=== PATIENT | female | born 1945 | race Hispanic/Latino ===

== ENCOUNTER 2016-07-21 12:21 | Outpatient (CLI) | payer MEDICARE ==
--- NOTE | 2016-07-21 15:22 | Cat Scan Report ---
CT CHEST WITHOUT CONTRAST INDICATION: Persistent cough. COMPARISON: 09/21/2009. FINDINGS: Noncontrast chest CT demonstrates normal heart size with silhouette exaggerated due to prominent pericardial fat pad. Anemia not excluded. Coronary calcifications. No effusions. Patent central airway. No aortic aneurysm, though assessment of the great vessels and for detecting subtle lymphadenopathy limited due to lack of IV contrast. No size significant axillary lymphadenopathy. Thyroid gland size normal. Some breathing artifact. Diffuse emphysematous changes again noted with interval resolution of bibasilar consolidation and small pleural effusions. Mild bibasilar scarring seen. Large hiatal hernia now measures approximately 5 cm AP x 10 cm transverse. Few hepatic hypodense cysts/hamartomas again seen, the largest 1.5 cm in the left hepatic lobe measuring 18 HU as on axial image 87, series 2. Slight left hepatic pneumobilia. Stable adrenal contours, including 1.2 cm hypodense right adrenal adenoma. Approximately 3.8 cm duodenum diverticulum about the junction of its second and third portions. Osteopenia and mild thoracic spine degenerative spurring. CONCLUSION: No acute chest CT abnormality on this unenhanced exam with numerous incidental findings, including COPD, large hiatal hernia, multiple hepatic hypodensities/cysts, duodenal diverticulum and adrenal adenomas again noted, also described in August 2009. Please correlate. Thank you for the opportunity to participate in this patient's care.
== END 2016-07-21 12:22 | disposition home or self-care (01) ==
LOC: CT 12:21
PROVIDERS: ATTEND Specialist
DX: R05 Cough (principal); M85.88 Other specified disorders of bone density and structure, other site; M47.894 Other spondylosis, thoracic region; K57.90 Diverticulosis of intestine, part unspecified, without perforation or abscess without bleeding; D35.01 Benign neoplasm of right adrenal gland; K76.89 Other specified diseases of liver; J90 Pleural effusion, not elsewhere classified; K44.9 Diaphragmatic hernia without obstruction or gangrene
CPT/HCPCS: 71250

== ENCOUNTER 2017-08-08 08:54 | Outpatient (CLI) | payer MEDICARE ==
--- NOTE | 2017-08-08 16:21 | Mammography Report ---
BONE DEXA:08/08/17 08:54:00 CLINICAL: Postmenopausal and long-term use of steroids. No comparison. TECHNIQUE: Two site bone DEXA performed on an Hologic scanner. FINDINGS: The average BMD of the lumbar spine L1-L4 is 0.696g/cm squared with a T-score of -3.2 and a Z-score of -0.9. The average BMD of the left hip is 0.673g/cm squared with a T-score of -2.2 and a Z-score of -0.5. The left femoral neck BMD is 0.551g/cm squared with a T score of -2.7 and a Z score of -0.7. IMPRESSION: WHO classification: Osteoporosis with high fracture risk based on both lumbar spine and left femoral neck measurements. RECOMMENDATION: Clinical correlation and routine screening. DEFINITIONS: BMD = Bone Mineral Density T-score = BMD related to mean peak bone mass of young adult (mean expressed in Standard Deviation) Z-score = Age matched BMD expressed in SD World Health Organization (WHO) Diagnostic Criteria Normal T-score > -1 SD Osteopenia T-score between -1 and -2.4 SD Osteoporosis T-score -2.5 SD or below NOTE: BMD is not the only risk factor for fracture. One should also consider factors such as the patient's age, risk of falling, previous osteoporotic fracture, family history of osteoporotic fractures, current smoker, and low body weight. Z-scores are not calculated if >80 years of age.
== END 2017-08-08 08:55 | disposition home or self-care (01) ==
LOC: MAMMO 08:54
PROVIDERS: ATTEND Internal Medicine
DX: Z13.820 Encounter for screening for osteoporosis (principal); Z79.51 Long term (current) use of inhaled steroids; Z78.0 Asymptomatic menopausal state
CPT/HCPCS: 77080

== ENCOUNTER 2017-10-09 11:02 | Emergency (ER) | payer MEDICARE ==
[2017-10-09 11:58] LABS: Hemoglobin 11.5 gm/dl (10.1-14.3); Mean Corpuscular HGB Conc 32 % (30-34); Mean Corpuscular Hemoglobin 33 pg (28-32); Mean Corpuscular Volume 105 fl (79-97); Platelet Count 296 K/mm3 (140-440); Red Blood Count 3.43 M/mm3 (3.65-5.03); Red Cell Distribution Width 19.1 % (13.2-15.2)
[2017-10-09 12:13] LABS: Alanine Aminotransferase 11 units/L (7-56); Albumin 3.8 g/dL (3.9-5); BUN/Creatinine Ratio 15; Blood Urea Nitrogen 6 mg/dL (7-17); Calcium 6.3 mg/dL (8.4-10.2); Hemolysis Index 4
--- NOTE | 2017-10-09 13:22 | Emergency Department Report ---
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 Patient presented to the ER complaining of generalized weakness and shortness of breath. Patient is worried that her hemoglobin is dropping again. Patient stated that her shortness of breath is usual for her since she has a COPD but she is worried about congestive heart failure. Patient denied any chest pain, lower extremity swelling, fever or cough. - Related Data Home Medications Medication Instructions Recorded Confirmed Last Taken ALBUTEROL Inhaler [ProAir HFA 2 puff IH DAILY 01/12/13 07/16/14 06/12/14 Inhaler] ALBUTEROL NEB's [Proventil 0.083% 2.5 mg IH QID 01/12/13 07/16/14 06/12/14 NEBS] Fluticasone/Salmeterol [Advair 1 puff IH BID 01/12/13 07/16/14 06/12/14 Diskus 250-50 mcg] Tiotropium [Spiriva] 1 cap IH QDAY 01/12/13 07/16/14 06/12/14 Iron 65 mg PO QDAY 06/05/14 07/16/14 06/11/14 Lansoprazole [Prevacid] 15 mg PO QDAY 06/05/14 07/16/14 06/11/14 Previous Rx's Medication Instructions Recorded Last Taken Type Calcium Carbonate/Vitamin D3 1 each PO DAILY #15 tablet 10/09/17 Unknown Rx [Calcium 600-Vit D3 800 Tablet] Allergies Allergy/AdvReac Type Severity Reaction Status Date / Time levofloxacin [From Levaquin] Allergy Anaphylaxis Verified 01/12/13 14:17 Penicillins Allergy Anaphylaxis Verified 01/12/13 14:17 Sulfa (Sulfonamide Allergy Anaphylaxis Verified 01/12/13 14:17 Antibiotics) ED Review of Systems ROS: Stated complaint: SOB Other details as noted in HPI Comment: All other systems reviewed and negative Constitutional: denies: chills, fever Respiratory: shortness of breath, SOB with exertion, SOB at rest. denies: cough Cardiovascular: denies: chest pain, palpitations, dyspnea on exertion Gastrointestinal: denies: abdominal pain, nausea, vomiting, diarrhea, constipation, hematemesis, melena, hematochezia Neurological: weakness. denies: headache, numbness, paresthesias, confusion ED Past Medical Hx - Past Medical History Hx Arthritis: Yes (HANDS,osteo arthritis) Hx COPD: Yes (home O2) Additional medical history: anemia - Surgical History Additional Surgical History: Hysterectomy. Tonsillectomy. - Social History Smoking Status: Unknown if ever smoked Substance Use Type: None - Medications Home Medications: Home Medications Medication Instructions Recorded Confirmed Last Taken Type ALBUTEROL Inhaler [ProAir HFA 2 puff IH DAILY 01/12/13 07/16/14 06/12/14 History Inhaler] ALBUTEROL NEB's [Proventil 0.083% 2.5 mg IH QID 01/12/13 07/16/14 06/12/14 History NEBS] Fluticasone/Salmeterol [Advair 1 puff IH BID 01/12/13 07/16/14 06/12/14 History Diskus 250-50 mcg] Tiotropium [Spiriva] 1 cap IH QDAY 01/12/13 07/16/14 06/12/14 History Iron 65 mg PO QDAY 06/05/14 07/16/14 06/11/14 History Lansoprazole [Prevacid] 15 mg PO QDAY 06/05/14 07/16/14 06/11/14 History Calcium Carbonate/Vitamin D3 1 each PO DAILY #15 tablet 10/09/17 Unknown Rx [Calcium 600-Vit D3 800 Tablet] ED Physical Exam - General Limitations: No Limitations General appearance: alert, in no apparent distress - Head Head exam: Present: atraumatic, normocephalic, normal inspection - Eye Eye exam: Present: normal appearance, PERRL - ENT ENT exam: Present: normal exam, normal orophraynx, mucous membranes moist - Neck Neck exam: Present: normal inspection, full ROM. Absent: tenderness, meningismus, lymphadenopathy, thyromegaly - Respiratory Respiratory exam: Present: normal lung sounds bilaterally. Absent: respiratory distress, wheezes, rales, rhonchi, chest wall tenderness, accessory muscle use, decreased breath sounds, prolonged expiratory - Cardiovascular Cardiovascular Exam: Present: regular rate, normal rhythm, normal heart sounds - GI/Abdominal GI/Abdominal exam: Present: soft, normal bowel sounds. Absent: distended, tenderness, guarding, rebound, rigid, organomegaly, mass, bruit, pulsatile mass , hernia - Extremities Exam Extremities exam: Present: normal inspection, full ROM, normal capillary refill. Absent: pedal edema, calf tenderness - Back Exam Back exam: Present: normal inspection, full ROM. Absent: CVA tenderness (R), CVA tenderness (L), muscle spasm, paraspinal tenderness, vertebral tenderness, rash noted - Neurological Exam Neurological exam: Present: alert, oriented X3, CN II-XII intact, normal gait, reflexes normal - Skin Skin exam: Present: warm, intact, normal color ED Course Vital Signs 10/09/17 10/09/17 10/09/17 11:26 12:42 12:48 Temperature 98 F Pulse Rate 103 H 80 Respiratory 18 22 22 Rate Blood Pressure 110/78 Blood Pressure 120/55 [Right] O2 Sat by Pulse 98 98 100 Oximetry 10/09/17 13:56 Temperature Pulse Rate 75 Respiratory Rate Blood Pressure Blood Pressure [Right] O2 Sat by Pulse Oximetry ED Medical Decision Making - Lab Data Result diagrams: 10/09/17 11:48 10/09/17 11:48 - Radiology Data Radiology results: image reviewed interpreted by me: Chest x-ray is unremarkable. Critical care attestation.: If time is entered above; I have spent that time in minutes in the direct care of this critically ill patient, excluding procedure time. ED Disposition Clinical Impression: Shortness of breath, Generalized weakness, Hypocalcemia Disposition: TO HOME OR SELFCARE Is pt being admited?: No Condition: Stable Instructions: Hypocalcemia (ED), Dyspnea (ED) Prescriptions: Calcium Carbonate/Vitamin D3 [Calcium 600-Vit D3 800 Tablet] 1 each PO DAILY # 15 tablet Referrals: PRIMARY CARE, [Primary Care Provider] - 3-5 Days
[2017-10-09 14:03] LABS: INR 0.85 (0.87-1.13)
[2017-10-09 14:04] LABS: Partial Thromboplastin Time 25.8 Sec. (24.2-36.6)
[2017-10-09 14:35] LABS: Bacteria,Urine 1+ /HPF (Negative); Bilirubin,Urine NEG (Negative); Blood,Urine NEG (Negative); Color,Urine Yellow (Yellow); Mucus,Urine FEW /HPF; Protein,Urine <15 mg/dL mg/dL (Negative)
[2017-10-09] MEDS ORDERED: CALCIUM CHLORIDE 1,000 MG in NACL 0.9% 100 ML IV ONE (15:25)
[2017-10-09 16:43] VITALS: BP 118/55
--- NOTE | 2017-10-09 18:15 | XRay Report ---
FINAL REPORT EXAM: XR CHEST 1V AP HISTORY: sob TECHNIQUE: Frontal chest x-ray Comparison: None FINDINGS: Heart size is mildly enlarged. There is hypoventilatory change of both lung bases. Underlying pulmonary emphysema may be present. There is mild left basal scar. Bases are incompletely assessed. There is degenerative change of the bilateral shoulder girdles. IMPRESSION: Hypoventilated single-view frontal chest. Atelectatic changes of the bases. Cardiomegaly without failure. Probable emphysema. Recommend larger inspiratory volume two view chest.
== END 2017-10-09 16:25 | disposition home or self-care (01) ==
LOC: ED 11:02
DX: E83.51 Hypocalcemia (principal); M62.81 Muscle weakness (generalized); R06.02 Shortness of breath; M19.90 Unspecified osteoarthritis, unspecified site; D64.9 Anemia, unspecified; Z90.710 Acquired absence of both cervix and uterus; Z90.89 Acquired absence of other organs; Z88.0 Allergy status to penicillin; Z88.2 Allergy status to sulfonamides; Z88.1 Allergy status to other antibiotic agents; Z79.899 Other long term (current) drug therapy
CPT/HCPCS: 36415; 71045; 80053; 81001; 83880; 84484; 85027; 85610; 85730; 86850; 86900; 86901; 93005; 93010; 96365

== ENCOUNTER 2018-11-24 12:27 | Outpatient (CLI) | payer MEDICARE ==
[2018-11-24 13:27] LABS: BUN/Creatinine Ratio 16; Blood Urea Nitrogen 8 mg/dL (7-17); Calcium 8.8 mg/dL (8.4-10.2); Hemolysis Index 18
--- NOTE | 2018-11-24 14:33 | Cat Scan Report ---
. CTA CHEST WITH CONTRAST INDICATION : R04.2 HEMOPTYSIS. Shortness of breath. TECHNIQUE: Axial imaging performed through the chest, with contrast bolus timing set to maximize opa cification of the pulmonary arteries. Sagittal and coronal reformatted images. 3-plane MIP reformatte d images were obtained. All CT scans at this location are performed using CT dose reduction for ALAR A by means of automated exposure control. 100 mL of intravenous contrast administered. COMPARISON: None FINDINGS: Bolus: Contrast bolus timing is adequate. PTE: No filling defect is present to suggest PTE. Mediastinum: Heart and great vessels appear normal. No pathologic mediastinal adenopathy. A large h iatal hernia is identified. Lungs: Moderate emphysematous changes are identified bilaterally. No evidence for infiltrate, mass, pleural effusion or pneumothorax. Bones: Degenerative changes in the spine with nothing acute. Upper abdomen: Limited imaging of the upper abdomen shows nothing acute. IMPRESSION: No evidence for pulmonary embolus. Emphysematous changes. Large hiatal hernia. Signer Name: Rigo Emery Jr, MD Signed: 11/24/2018 2:28 PM Workstation Name: [id number]
== END 2018-11-24 12:28 | disposition home or self-care (01) ==
LOC: CT 12:27
PROVIDERS: ATTEND Internal Medicine
DX: R04.2 Hemoptysis (principal)
CPT/HCPCS: 36415; 71275; 80048

== ENCOUNTER 2019-02-06 12:59 | Inpatient (IN) | payer MEDICARE ==
[2019-02-06] MEDS ORDERED: ALBUTEROL 2.5 MG/3 ML NEBU IH ONE (13:21)
[2019-02-06] MEDS ORDERED: IPRATROPIUM 0.02% NEBU 2.5 ML IH ONE (13:21)
[2019-02-06] MEDS ORDERED: methylPREDNISolone Sod Succinate 125 MG/2 ML INJ IV ONE (13:22)
--- NOTE | 2019-02-06 13:25 | Emergency Department Report ---
<VIKTORMISSY A - Last Filed: 02/06/19 17:22> ED Shortness of Breath HPI - General Chief Complaint: Dyspnea/Respdistress Stated Complaint: SOB Time Seen by Provider: 02/06/19 13:19 Source: patient Mode of arrival: Wheelchair Limitations: Physical Limitation - History of Present Illness Initial Comments: Pt is a 73-year-old female who comes to the ER after seeing her PCP Dr. Cabrales ([phone]) yesterday. During the office visit he did some blood work, the results came back today, and he called the patient and told her to come to the ER given her with the patient reports to be low oxygen level. [employer] Advisor is Dr. Reddy Pt voices progressive shortness of breath. Shortness of breath requiring less activity to precipitate it. She also reports that her legs up and swollen. Her primary care had her set up for an echocardiogram outpatient tomorrow. She denies any chest pain. Of note the patient was in the emergency room in November and had a CTA that time that showed emphysematous changes and no PE. PMH COPD On home NC 2-3 L former smoker PSH denies NO known CAD/CVA NOK daugther Home Rx ventolin albuterol budesimide lanpaprozole prednisone sprivia vitc fe D3 Complaint: shortness of breath -: Gradual Severity: moderate Improves With: oxygen, rest Worsens With: exertion Known History Of: COPD, congestive heart failure Treatments Prior to Arrival: oxygen, bronchodilator - Related Data Home Oxygen Therapy: Yes Home Oxygen Amount: 2 Liters Home Medications Medication Instructions Recorded Confirmed Last Taken ALBUTEROL NEB's [Proventil 0.083% 2.5 mg IH Q6H PRN 01/12/13 10/19/17 06/12/14 NEBS] Tiotropium [Spiriva] 1 cap IH QDAY 01/12/13 10/19/17 06/12/14 Iron [Iron 18 MG TAB] 65 mg PO QDAY 06/05/14 10/19/17 06/11/14 Lansoprazole [Prevacid] 30 mg PO QDAY 06/05/14 10/19/17 06/11/14 Albuterol Sulfate [Ventolin HFA] 2 puff IH Q6H PRN 10/19/17 10/19/17 Unknown Budesoni/Formotero 160-4.5(Nf) 2 puff IH BID 10/19/17 10/19/17 Unknown [Symbicort 160-4.5 (Nf)] Previous Rx's Medication Instructions Recorded Last Taken Type Phosphorus #1 [K-Phos Neutral] 250 mg PO QID #120 tablet 10/20/17 Unknown Rx Calcium Carbonate [Tums 500MG CHEW] 1,000 mg PO BID 60 Days tablet 10/29/17 Unknown Rx Cholecalciferol (Vitamin D3) 50,000 unit PO QWEEK #6 capsule 10/29/17 Unknown Rx [Vitamin D3 50,000UNIT CAP] Allergies Allergy/AdvReac Type Severity Reaction Status Date / Time cefaclor [From Ceclor] Allergy Rash Verified 10/26/17 18:05 levofloxacin [From Levaquin] Allergy Anaphylaxis Verified 10/26/17 18:05 Penicillins Allergy Anaphylaxis Verified 10/26/17 18:05 Sulfa (Sulfonamide Allergy Anaphylaxis Verified 10/26/17 18:05 Antibiotics) ED Review of Systems Comment: All other systems reviewed and negative ED Past Medical Hx - Past Medical History Previous Medical History?: Yes Hx Hypertension: No Hx CVA: No Hx Heart Attack/AMI: No Hx Congestive Heart Failure: Yes Hx Diabetes: No Hx Deep Vein Thrombosis: No Hx Pulmonary Embolism: No Hx GERD: No Hx Liver Disease: No Hx Renal Disease: No Hx of Cancer: No Hx Sickle Cell Disease: No Hx Arthritis: Yes (HANDS,osteo arthritis) Hx Headaches / Migraines: No Hx Seizures: No Hx Kidney Stones: No Hx Psychiatric Treatment: No Hx Asthma: No Hx COPD: Yes (home O2 2.5L) Hx Tuberculosis: No Hx Dementia: No Hx HIV: No Additional medical history: anemia-transfusions, hypophosphatemia, hypocalcemia - Surgical History Past Surgical History?: Yes Additional Surgical History: Hysterectomy. Tonsillectomy. - Family History Family history: no significant - Social History Smoking Status: Former Smoker Substance Use Type: None - Medications Home Medications: Home Medications Medication Instructions Recorded Confirmed Last Taken Type ALBUTEROL NEB's [Proventil 0.083% 2.5 mg IH Q6H PRN 01/12/13 10/19/17 06/12/14 History NEBS] Tiotropium [Spiriva] 1 cap IH QDAY 01/12/13 10/19/17 06/12/14 History Iron [Iron 18 MG TAB] 65 mg PO QDAY 06/05/14 10/19/17 06/11/14 History Lansoprazole [Prevacid] 30 mg PO QDAY 06/05/14 10/19/17 06/11/14 History Albuterol Sulfate [Ventolin HFA] 2 puff IH Q6H PRN 10/19/17 10/19/17 Unknown History Budesoni/Formotero 160-4.5(Nf) 2 puff IH BID 10/19/17 10/19/17 Unknown History [Symbicort 160-4.5 (Nf)] Phosphorus #1 [K-Phos Neutral] 250 mg PO QID #120 tablet 10/20/17 Unknown Rx Calcium Carbonate [Tums 500MG CHEW] 1,000 mg PO BID 60 Days tablet 10/29/17 Unknown Rx Cholecalciferol (Vitamin D3) 50,000 unit PO QWEEK #6 capsule 10/29/17 Unknown Rx [Vitamin D3 50,000UNIT CAP] ED Physical Exam - General Limitations: Physical Limitation General appearance: alert, in no apparent distress - Head Head exam: Present: atraumatic, normocephalic - Eye Eye exam: Present: normal appearance - ENT ENT exam: Present: mucous membranes moist - Neck Neck exam: Present: normal inspection - Respiratory Respiratory exam: Present: normal lung sounds bilaterally, wheezes, rales, prolonged expiratory. Absent: rhonchi, stridor, chest wall tenderness, accessory muscle use, decreased breath sounds - Cardiovascular Cardiovascular Exam: Present: regular rate, normal rhythm, bradycardia. Absent: systolic murmur, diastolic murmur, rubs, gallop - GI/Abdominal GI/Abdominal exam: Present: soft, normal bowel sounds - Rectal Rectal exam: Present: deferred - Extremities Exam Extremities exam: Present: normal inspection - Back Exam Back exam: Present: normal inspection - Neurological Exam Neurological exam: Present: alert, oriented X3 - Psychiatric Psychiatric exam: Present: normal affect, normal mood - Skin Skin exam: Present: warm, dry, intact, normal color. Absent: rash ED Medical Decision Making - Lab Data Result diagrams: 02/06/19 13:33 02/06/19 13:33 - EKG Data EKG shows normal: sinus rhythm Rate: normal - EKG Data Interpretation: no acute changes - Radiology Data Radiology results: report reviewed, image reviewed - Medical Decision Making Labs 02/06/19 02/06/19 02/06/19 13:33 13:33 14:04 WBC 4.2 L RBC 3.52 L Hgb 12.4 Hct 38.2 MCV 109 H MCH 35 H MCHC 32 RDW 14.9 Plt Count 250 Lymph % (Auto) 7.5 L Mcpherson % (Auto) 6.1 Eos % (Auto) 1.0 Baso % (Auto) 0.3 Lymph # 0.3 L Mcpherson # 0.3 Eos # 0.0 Baso # 0.0 Seg Neutrophils % 85.1 H Seg Neutrophils # 3.6 POC ABG pH 7.464 H POC ABG pCO2 56.1 H POC ABG pO2 50 L POC ABG HCO3 40.3 POC ABG Total CO2 42 POC ABG O2 Sat 86 POC ABG Base Excess 17 FiO2 32 Sodium 143 Potassium 4.4 Chloride 96.9 L Carbon Dioxide 35 H Anion Gap 16 BUN 6 L Creatinine 0.5 L Estimated GFR > 60 BUN/Creatinine Ratio 12 Glucose 90 Calcium 9.1 Magnesium 2.00 Total Bilirubin 0.20 AST 16 ALT 6 L Alkaline Phosphatase 45 Total Creatine Kinase 87 CK-MB (CK-2) 3.7 CK-MB (CK-2) Rel Index 4.2 H Troponin T < 0.010 NT-Pro-B Natriuret Pep 267.6 Total Protein 6.8 Albumin 4.0 Albumin/Globulin Ratio 1.4 Vital Signs 02/06/19 02/06/19 02/06/19 13:19 13:25 13:54 Temperature 98.6 F Pulse Rate 103 H 103 H Pulse Rate [ 78 Bilateral] Respiratory 25 H Rate Respiratory 18 Rate [Bilateral ] Blood Pressure 130/105 O2 Sat by Pulse 94 Oximetry 02/06/19 13:58 Temperature Pulse Rate Pulse Rate [ Bilateral] Respiratory 25 H Rate Respiratory Rate [Bilateral ] Blood Pressure O2 Sat by Pulse 94 Oximetry ABG noted- PaO2 50 several years ago noted to be 75 call to PCP at 1415- Sat on arrival 86-90 now after albuterol/atrovent sat 99-100; then when pt exerts herself it falls to 90; this is on 3L 12 lead noted trop neg bnp neg xray noted labs noted- wbc normal no fever no cough 1415 Dr Fulton paged Staffed with Dr Tran [id number] Cabrales His concerns progressive hypoxia concerning for RV heart failure, pulmonary htn. He points out she is steroid dependent and sees Dr Martines -pulmonology He recommends echo in AM. 1720 DR FULTON AT BEDSIDE - Differential Diagnosis ro copd ae/dec hf/acs ED Disposition Disposition: DC-09 OP ADMIT IP TO THIS HOSP Is pt being admited?: Yes Does the pt Need Aspirin: No Condition: Stable Instructions: Chronic Obstructive Pulmonary Disease (ED) Referrals: PRIMARY CARE,MD [Primary Care Provider] - 3-5 Days Time of Disposition: 14:29 <BEKA FULTON S - Last Filed: 02/06/19 19:44> ED Review of Systems ROS: Stated complaint: SOB Other details as noted in HPI ED Course Vital Signs 02/06/19 02/06/19 02/06/19 13:19 13:25 13:54 Temperature 98.6 F Pulse Rate 103 H 103 H Pulse Rate [ 78 Bilateral] Respiratory 25 H Rate Respiratory 18 Rate [Bilateral ] Blood Pressure 130/105 Blood Pressure [Left] O2 Sat by Pulse 94 Oximetry 02/06/19 02/06/19 13:58 14:40 Temperature Pulse Rate 102 H Pulse Rate [ Bilateral] Respiratory 25 H 18 Rate Respiratory Rate [Bilateral ] Blood Pressure Blood Pressure 120/66 [Left] O2 Sat by Pulse 94 96 Oximetry ED Medical Decision Making - Lab Data Result diagrams: 02/06/19 13:33 02/06/19 13:33 Critical care attestation.: If time is entered above; I have spent that time in minutes in the direct care of this critically ill patient, excluding procedure time.
[2019-02-06 13:56] LABS: Basophils % (Auto) 0.3 % (0.0-1.8); Hematocrit 38.2 % (30.3-42.9); Hemoglobin 12.4 gm/dl (10.1-14.3); Lymphocytes # (Auto) 0.3 K/mm3 (1.2-5.4); Lymphocytes % (Auto) 7.5 % (13.4-35.0); Mean Corpuscular HGB Conc 32 % (30-34); Mean Corpuscular Volume 109 fl (79-97); Monocytes # (Auto) 0.3 K/mm3 (0.0-0.8); Monocytes % (Auto) 6.1 % (0.0-7.3); Platelet Count 250 K/mm3 (140-440); Red Blood Count 3.52 M/mm3 (3.65-5.03); Red Cell Distribution Width 14.9 % (13.2-15.2)
--- NOTE | 2019-02-06 14:11 | XRay Report ---
CHEST 1 VIEW INDICATION: Dyspnea. COMPARISON: 10/09/2017 FINDINGS: Support devices: None. Heart: Within normal limits. Lungs/Pleura: COPD changes in the lungs with mild bibasilar atelectasis. Additional findings: None. IMPRESSION: 1. COPD changes with mild bibasilar atelectasis. Signer Name: Otoniel Arteaga MD Signed: 02/06/2019 2:06 PM Workstation Name: [id number]
[2019-02-06 14:12] LABS: Creatine Kinase MB 3.7 ng/mL (0.0-4.0)
[2019-02-06 14:13] LABS: Alanine Aminotransferase 6 units/L (7-56); BUN/Creatinine Ratio 12; Blood Urea Nitrogen 6 mg/dL (7-17); Calcium 9.1 mg/dL (8.4-10.2); Hemolysis Index 14
[2019-02-06 14:35] LABS: INR 0.89 (0.87-1.13)
[2019-02-06 14:37] LABS: Partial Thromboplastin Time 28.2 Sec. (24.2-36.6)
[2019-02-06 15:06] LABS: Bacteria,Urine 4+ /HPF (Negative); Bilirubin,Urine NEG (Negative); Blood,Urine NEG (Negative); Color,Urine Yellow (Yellow); Mucus,Urine FEW /HPF; Protein,Urine <15 mg/dL mg/dL (Negative); WBC,Urine < 1.0 /HPF (0.0-6.0)
[2019-02-06] MEDS ORDERED: AZITHROMYCIN 500 MG in SODIUM CHLORIDE 0.9% 250ML 250 ML IV ONE (18:00)
[2019-02-06] MEDS ORDERED: ONDANSETRON 4 MG/2 ML INJ IV PRN (19:33)
[2019-02-06] MEDS ORDERED: HYDROmorphone 1 MG/1 ML INJ IV PRN (19:33)
[2019-02-06] MEDS ORDERED: ACETAMINOPHEN 325 MG TAB PO PRN (19:33)
[2019-02-06] MEDS ORDERED: oxyCODONE /ACETAMINOPHEN 5-325MG TAB PO PRN (19:33)
[2019-02-06] MEDS ORDERED: IPRATROPIUM/ALBUTEROL SULFATE 3 ML AMPUL.NEB IH PRN (19:40)
[2019-02-06] MEDS ORDERED: ALBUTEROL 8.5 GM INHALATION IH PRN (19:42)
[2019-02-06] MEDS ORDERED: TIOTROPIUM 18 MCG CAP INHALATION IH SCH (19:45)
[2019-02-06] MEDS ORDERED: ALBUTEROL 2.5 MG/3 ML NEBU IH PRN (20:04)
[2019-02-06] MEDS ORDERED: methylPREDNISolone Sod Succinate 125 MG/2 ML INJ ONE (20:45)
[2019-02-06] MEDS ORDERED: IPRATROPIUM/ALBUTEROL SULFATE 3 ML AMPUL.NEB IH ONE (20:46)
[2019-02-06] MEDS: IPRATROPIUM/ALBUTEROL SULFATE 3 ML AMPUL.NEB IH SCH (20:48)
[2019-02-06] MEDS: methylPREDNISolone Sod Succinate 125 MG/2 ML INJ IV SCH (20:48)
[2019-02-06] MEDS ORDERED: NON-FORMULARY EACH (Budesoni/Formotero 160-4.5(Nf) 2 PUFF) IH SCH (22:00)
[2019-02-06] MEDS: BUDESONIDE 0.5 MG/2 ML NEBU IH SCH (22:10)
[2019-02-06] MEDS: ARFORMOTEROL 15 MCG/2 ML NEBU IH SCH (22:10)
[2019-02-06] MEDS: FAMOTIDINE 20 MG/2 ML INJ IV SCH (23:11)
[2019-02-06] MEDS: HEPARIN 5,000 UNIT/1 ML VIAL SUB-Q SCH (23:12)
[2019-02-06] MEDS: CALCIUM CARBONATE 500 MG TAB CHEW PO SCH (23:13)
[2019-02-06] MEDS: K-PHOS NEUTRAL 250 MG TAB PO SCH (23:48)
[2019-02-07] MEDS ORDERED: LORazepam 2 MG/ML VIAL IV ONE (00:37)
[2019-02-07] MEDS ORDERED: AMIODARONE 150 MG in DEXTROSE 5% IN WATER 97 ML IV ONE (00:44)
[2019-02-07] MEDS ORDERED: SODIUM CHLORIDE 0.9% 500 ML 500 ML IV ONE (00:46)
--- NOTE | 2019-02-07 00:59 | Event Note ---
Date: 02/07/19 Arrived at bedside at 00:20 after call from RN requesting intervention for HR of 200. Respiratory therapist and rn in room. Pt sats 70s and HR, 120. Pt appeared anxious, EKG ordered and pt placed back on BIPAP. SVT rhythm and rate of 215 noted, cardiology paged, spoke with DR. Fabián Joyce, reccomendations appreciated. Normal saline bolus ordered for blood pressure of 89/65. Amniodarone bolus and drip ordered, echocardiogram, followup on ABG and patient will be transferred to ICU.
[2019-02-07] MEDS ORDERED: AMIODARONE 900 MG in DEXTROSE 5% IN WATER 482 ML IV SCH (01:00)
[2019-02-07 01:53] LABS: ABG Base Excess 5.6 mmol/L (-2.0-3.0); ABG HCO3 35.5 mmol/L (20.0-26.0); ABG Methemoglobin 0.5 % (0.0-1.5); ABG Oxygen Saturation 96.6 % (95.0-99.0); ABG PCO2 82.2 mm Hg; ABG PH 7.253 pH Units (7.350-7.450); ABG PO2 95.4 mm Hg (80.0-90.0)
[2019-02-07] MEDS: methylPREDNISolone Sod Succinate 125 MG/2 ML INJ IV SCH ×4 (05:13→21:04)
[2019-02-07 05:40] LABS: ABG Base Excess 8.5 mmol/L (-2.0-3.0); ABG HCO3 38.3 mmol/L (20.0-26.0); ABG Methemoglobin 0.5 % (0.0-1.5); ABG Oxygen Saturation 96.6 % (95.0-99.0); ABG PCO2 85.4 mm Hg; ABG PH 7.269 pH Units (7.350-7.450); ABG PO2 93.3 mm Hg (80.0-90.0)
[2019-02-07 05:45] LABS: Hematocrit 35.7 % (30.3-42.9); Hemoglobin 11.6 gm/dl (10.1-14.3); Mean Corpuscular HGB Conc 32 % (30-34); Mean Corpuscular Volume 109 fl (79-97); Platelet Count 241 K/mm3 (140-440); Red Blood Count 3.28 M/mm3 (3.65-5.03); Red Cell Distribution Width 14.6 % (13.2-15.2)
--- NOTE | 2019-02-07 05:57 | History and Physical Report ---
History of Present Illness Date of examination: 02/06/19 Date of admission: 02/06/19 19:33 Chief complaint: Severe SOB for one week and worsening. History of present illness: 73-year-old female with history of severe COPD comes to the ER for progressive shortness of breath. Shortness of breath requiring less activity to precipitate it. She also reports that her legs up and swollen. She denies any chest pain. SOB worsening over last one week.No orthopnea.Has Pedal edema.Cough productive of mucoid sputum. Patient was in the emergency room in November and had a CTA that time that showed emphysematous changes and no PE.NCo fever or chills.Patient on Home O2 2 to 3 liters Past Medical History Previous Medical History?: Yes Severe COPD Additional medical history: anemia-transfusions, hypophosphatemia, hypocalcemia - Surgical History Past Surgical History?: Yes Additional Surgical History: Hysterectomy. Tonsillectomy. - Family History Family history: no significant - Social History Smoking Status: Former Smoker Substance Use Type: None - Medications Home Medications: Home Medications Medication Instructions Recorded Confirmed Last Taken Type ALBUTEROL NEB's [Proventil 0.083% 2.5 mg IH Q6H PRN 01/12/13 10/19/17 06/12/14 History NEBS] Tiotropium [Spiriva] 1 cap IH QDAY 01/12/13 10/19/17 06/12/14 History Iron [Iron 18 MG TAB] 65 mg PO QDAY 06/05/14 10/19/17 06/11/14 History Lansoprazole [Prevacid] 30 mg PO QDAY 06/05/14 10/19/17 06/11/14 History Albuterol Sulfate [Ventolin HFA] 2 puff IH Q6H PRN 10/19/17 10/19/17 Unknown History Budesoni/Formotero 160-4.5(Nf) 2 puff IH BID 10/19/17 10/19/17 Unknown History [Symbicort 160-4.5 (Nf)] Phosphorus #1 [K-Phos Neutral] 250 mg PO QID #120 tablet 10/20/17 Unknown Rx Calcium Carbonate [Tums 500MG CHEW] 1,000 mg PO BID 60 Days tablet 10/29/17 Unknown Rx Cholecalciferol (Vitamin D3) 50,000 unit PO QWEEK #6 capsule 10/29/17 Unknown Rx [Vitamin D3 50,000UNIT CAP] Medications and Allergies Allergies Allergy/AdvReac Type Severity Reaction Status Date / Time cefaclor [From Ceclor] Allergy Rash Verified 10/26/17 18:05 levofloxacin [From Levaquin] Allergy Anaphylaxis Verified 10/26/17 18:05 Penicillins Allergy Anaphylaxis Verified 10/26/17 18:05 Sulfa (Sulfonamide Allergy Anaphylaxis Verified 10/26/17 18:05 Antibiotics) Home Medications Medication Instructions Recorded Confirmed Last Taken Type ALBUTEROL NEB's [Proventil 0.083% 2.5 mg IH Q6H PRN 01/12/13 10/19/17 06/12/14 History NEBS] Tiotropium [Spiriva] 1 cap IH QDAY 01/12/13 10/19/17 06/12/14 History Iron [Iron 18 MG TAB] 65 mg PO QDAY 06/05/14 10/19/17 06/11/14 History Lansoprazole [Prevacid] 30 mg PO QDAY 06/05/14 10/19/17 06/11/14 History Albuterol Sulfate [Ventolin HFA] 2 puff IH Q6H PRN 10/19/17 10/19/17 Unknown History Budesoni/Formotero 160-4.5(Nf) 2 puff IH BID 10/19/17 10/19/17 Unknown History [Symbicort 160-4.5 (Nf)] Phosphorus #1 [K-Phos Neutral] 250 mg PO QID #120 tablet 10/20/17 Unknown Rx Calcium Carbonate [Tums 500MG CHEW] 1,000 mg PO BID 60 Days tablet 10/29/17 Unknown Rx Cholecalciferol (Vitamin D3) 50,000 unit PO QWEEK #6 capsule 10/29/17 Unknown Rx [Vitamin D3 50,000UNIT CAP] Active Meds: Active Medications Acetaminophen (Tylenol) 650 mg PO Q4H PRN PRN Reason: Pain MILD(1-3)/Fever >100.5/RAMOS Albuterol (Proventil) 2.5 mg IH Q3HRT PRN PRN Reason: Shortness Of Breath Albuterol/Ipratropium (Duoneb *Not For Prn Use*) 1 ampul IH QIDRT [facility] Last Admin: 02/06/19 20:48 Dose: 1 ampul Documented by: Arformoterol Tartrate (Brovana Nebu) 15 mcg IH Q12HRT [facility] Last Admin: 02/06/19 22:10 Dose: 15 mcg Documented by: Budesonide (Pulmicort) 0.5 mg IH Q12HRT [facility] Last Admin: 02/06/19 22:10 Dose: 0.5 mg Documented by: Calcium Carbonate/Glycine (Tums) 1,000 mg PO BID [facility] Last Admin: 02/06/19 23:13 Dose: 1,000 mg Documented by: Famotidine (Pepcid) 20 mg IV BID [facility] Last Admin: 02/06/19 23:11 Dose: 20 mg Documented by: Ferrous Sulfate (Feosol) 325 mg PO DAILY [facility] Heparin Sodium (Porcine) (Heparin) 5,000 unit SUB-Q Q12HR [facility] Last Admin: 02/06/19 23:12 Dose: 5,000 unit Documented by: Hydromorphone HCl (Dilaudid) 0.5 mg IV Q3H PRN PRN Reason: Pain , Severe (7-10) Levofloxacin/Dextrose (Levaquin 750mg/150ml) 750 mg in 150 mls @ 100 mls/hr IV Q24H [facility]; Protocol Last Admin: 02/06/19 23:11 Dose: 100 mls/hr Documented by: Amiodarone HCl 900 mg/ (Dextrose) 500 mls @ 33.333 mls/hr IV DIRECT [facility]; Protocol Last Admin: 02/07/19 02:03 Dose: 1 mg/min, 33.333 mls/hr Documented by: Methylprednisolone Sodium Succinate (Solu-Medrol) 60 mg IV Q6H [facility] Last Admin: 02/07/19 05:13 Dose: 60 mg Documented by: Ondansetron HCl (Zofran) 4 mg IV Q8H PRN PRN Reason: Nausea And Vomiting Oxycodone/Acetaminophen (Percocet 5/325) 1 tab PO Q6H PRN PRN Reason: Pain, Moderate (4-6) Sodium Chloride (Sodium Chloride Flush Syringe 10 Ml) 10 ml IV BID [facility] Last Admin: 02/06/19 23:12 Dose: 10 ml Documented by: Sodium Chloride (Sodium Chloride Flush Syringe 10 Ml) 10 ml IV PRN PRN PRN Reason: LINE FLUSH Sodium Phosphate (K-Phos Neutral) 250 mg PO QID [facility] Last Admin: 02/06/19 23:48 Dose: 250 mg Documented by: Review of Systems All systems: negative Constitutional: no weight loss, no weight gain, no fever, no chills, no sweats, no night sweats Ears, nose, mouth and throat: no ear pain, no ear discharge, no tinnitis, no decreased hearing Breasts: deferred Cardiovascular: edema, shortness of breath, dyspnea on exertion, no chest pain, no orthopnea, no palpitations, no rapid/irregular heart beat, no syncope Respiratory: cough, cough with sputum, dyspnea on exertion, congestion, wheezing Gastrointestinal: no abdominal pain, no nausea, no vomiting, no diarrhea, no constipation Genitourinary Female: no menorrhagia, no urinary frequency, no urgency, no stress incontinence, no post void dribbling Menstruation: ammenorrhea Rectal: no pain Musculoskeletal: no neck stiffness, no neck pain, no shooting arm pain, no arm numbness/tingling, no low back pain, no shooting leg pain, no leg numbness/tingling, no redness of joints Integumentary: no rash, no pruritis, no redness, no sores, no wounds Neurological: no seizures, no syncope Psychiatric: no anxiety, no memory loss, no change in sleep habits, no sleep d isturbances, no insomnia, no hypersomnia, no change in appetite, no change in libido, no suicidal ideation, no disorientation, no hallucinations Allergic/Immunologic: wheezing, no urticaria, no allergic rhinitis Exam - Constitutional Vitals: Temp Pulse Resp BP Pulse Ox 97.5 F L 98 H 20 94/50 96 02/07/19 04:17 02/07/19 05:15 02/07/19 05:15 02/07/19 05:15 02/07/19 05:15 General appearance: Present: severe distress, well-nourished - EENT Eyes: Present: PERRL ENT: hearing intact, clear oral mucosa - Neck Neck: Present: supple, normal ROM - Respiratory Respiratory effort: normal Respiratory: bilateral: CTA, rales, rhonchi - Cardiovascular Heart rate: 98 Rhythm: regular Heart Sounds: Present: S1 & S2. Absent: rub, click - Extremities Extremities: no ischemia, pulses intact, pulses symmetrical, No edema Peripheral Pulses: within normal limits - Abdominal General gastrointestinal: Present: soft, non-tender, non-distended, normal bowel sounds Female genitourinary: Present: normal - Rectal Rectal Exam: deferred - Integumentary Integumentary: Present: clear, warm, dry - Musculoskeletal Musculoskeletal: gait normal, strength equal bilaterally - Psychiatric Psychiatric: appropriate mood/affect, intact judgment & insight - Neurologic Neurologic: CNII-XII intact, moves all extremities - Allied Health Allied health notes reviewed: nursing, case management Results - Labs CBC & Chem 7: 02/06/19 13:33 02/06/19 13:33 Labs: Laboratory Last Values WBC 4.2 K/mm3 (4.5-11.0) L 02/06/19 13:33 RBC 3.52 M/mm3 (3.65-5.03) L 02/06/19 13:33 Hgb 12.4 gm/dl (10.1-14.3) 02/06/19 13:33 Hct 38.2 % (30.3-42.9) 02/06/19 13:33 MCV 109 fl (79-97) H 02/06/19 13:33 MCH 35 pg (28-32) H 02/06/19 13:33 MCHC 32 % (30-34) 02/06/19 13:33 RDW 14.9 % (13.2-15.2) 02/06/19 13:33 Plt Count 250 K/mm3 (140-440) 02/06/19 13:33 Lymph % (Auto) 7.5 % (13.4-35.0) L 02/06/19 13:33 [place] % (Auto) 6.1 % (0.0-7.3) 02/06/19 13:33 Eos % (Auto) 1.0 % (0.0-4.3) 02/06/19 13:33 Baso % (Auto) 0.3 % (0.0-1.8) 02/06/19 13:33 Lymph # 0.3 K/mm3 (1.2-5.4) L 02/06/19 13:33 [place] # 0.3 K/mm3 (0.0-0.8) 02/06/19 13:33 Eos # 0.0 K/mm3 (0.0-0.4) 02/06/19 13:33 Baso # 0.0 K/mm3 (0.0-0.1) 02/06/19 13:33 Seg Neutrophils % 85.1 % (40.0-70.0) H 02/06/19 13:33 Seg Neutrophils # 3.6 K/mm3 (1.8-7.7) 02/06/19 13:33 PT 12.1 Sec. (12.2-14.9) L 02/06/19 13:33 INR 0.89 (0.87-1.13) 02/06/19 13:33 APTT 28.2 Sec. (24.2-36.6) 02/06/19 13:33 POC ABG pH 7.276 (7.35-7.45) L 02/07/19 00:56 ABG pH 7.269 pH Units (7.350-7.450) L 02/07/19 05:25 POC ABG pCO2 56.1 (35-45) H 02/06/19 14:04 ABG pCO2 85.4 mm Hg 02/07/19 05:25 POC ABG pO2 62 (80-105) L 02/07/19 00:56 ABG pO2 93.3 mm Hg (80.0-90.0) H 02/07/19 05:25 POC ABG HCO3 38.9 (22-26 mml/L) 02/07/19 00:56 ABG HCO3 38.3 mmol/L (20.0-26.0) H 02/07/19 05:25 POC ABG Total CO2 41 (23-27mmol/L) 02/07/19 00:56 POC ABG O2 Sat 86 02/07/19 00:56 ABG O2 Saturation 96.6 % (95.0-99.0) 02/07/19 05:25 ABG O2 Content 15.8 (0.0-44) 02/07/19 05:25 POC ABG Base Excess 12 ((-2) - (+3)mmol/L) 02/07/19 00:56 ABG Base Excess 8.5 mmol/L (-2.0-3.0) H 02/07/19 05:25 ABG Hemoglobin 11.8 gm/dl (12.0-16.0) L 02/07/19 05:25 ABG Carboxyhemoglobin 1.6 % (0.0-5.0) 02/07/19 05:25 ABG Methemoglobin 0.5 % (0.0-1.5) 02/07/19 05:25 Oxyhemoglobin 94.6 % (95.0-99.0) L 02/07/19 05:25 FiO2 40 % 02/07/19 05:25 Sodium 143 mmol/L (137-145) 02/06/19 13:33 Potassium 4.4 mmol/L (3.6-5.0) 02/06/19 13:33 Chloride 96.9 mmol/L (98-107) L 02/06/19 13:33 Carbon Dioxide 35 mmol/L (22-30) H 02/06/19 13:33 Anion Gap 16 mmol/L 02/06/19 13:33 BUN 6 mg/dL (7-17) L 02/06/19 13:33 Creatinine 0.5 mg/dL (0.7-1.2) L 02/06/19 13:33 Estimated GFR > 60 ml/min 02/06/19 13:33 BUN/Creatinine Ratio 12 % 02/06/19 13:33 Glucose 90 mg/dL (65-100) 02/06/19 13:33 Hemoglobin A1c 5.2 % (4-6) 02/06/19 13:33 Calcium 9.1 mg/dL (8.4-10.2) 02/06/19 13:33 Magnesium 2.00 mg/dL (1.7-2.3) 02/06/19 13:33 Total Bilirubin 0.20 mg/dL (0.1-1.2) 02/06/19 13:33 AST 16 units/L (5-40) 02/06/19 13:33 ALT 6 units/L (7-56) L 02/06/19 13:33 Alkaline Phosphatase 45 units/L (35-129) 02/06/19 13:33 Total Creatine Kinase 87 units/L (30-135) 02/06/19 13:33 CK-MB (CK-2) 3.7 ng/mL (0.0-4.0) 02/06/19 13:33 CK-MB (CK-2) Rel Index 4.2 (0-4) H 02/06/19 13:33 Troponin T < 0.010 ng/mL (0.00-0.029) 02/06/19 17:01 NT-Pro-B Natriuret Pep 267.6 pg/mL (0-900) 02/06/19 13:33 Total Protein 6.8 g/dL (6.3-8.2) 02/06/19 13:33 Albumin 4.0 g/dL (3.9-5) 02/06/19 13:33 Albumin/Globulin Ratio 1.4 % 02/06/19 13:33 Urine Color Yellow (Yellow) 02/06/19 Unknown Urine Turbidity Slightly-cloudy (Clear) 02/06/19 Unknown Urine pH 8.0 (5.0-7.0) H 02/06/19 Unknown Ur Specific [place] 1.009 (1.003-1.030) 02/06/19 Unknown Urine Protein <15 mg/dl mg/dL (Negative) 02/06/19 Unknown Urine Glucose (UA) Neg mg/dL (Negative) 02/06/19 Unknown Urine Ketones Tr mg/dL (Negative) 02/06/19 Unknown Urine Blood Neg (Negative) 02/06/19 Unknown Urine Nitrite Pos (Negative) 02/06/19 Unknown Urine Bilirubin Neg (Negative) 02/06/19 Unknown Urine Urobilinogen 2.0 mg/dL (<2.0) 02/06/19 Unknown Ur Leukocyte Esterase Neg (Negative) 02/06/19 Unknown Urine WBC (Auto) < 1.0 /HPF (0.0-6.0) 02/06/19 Unknown Urine RBC (Auto) 6.0 /HPF (0.0-6.0) 02/06/19 Unknown U Epithel Cells (Auto) 2.0 /HPF (0-13.0) 02/06/19 Unknown Urine Bacteria (Auto) 4+ /HPF (Negative) 02/06/19 Unknown Urine Mucus Few /HPF 02/06/19 Unknown - Imaging and Cardiology EKG: report reviewed (Sinus tach with pvc's) Chest x-ray: report reviewed (COPD changes) Assessment and Plan Assessment and plan: CCT 40 min Advance Directives: Yes (Full code) VTE prophylaxis?: Chemical Plan of care discussed with patient/family: Yes - Patient Problems (1) Acute respiratory failure with hypoxia and hypercapnia Current Visit: Yes Status: Acute Plan to address problem: patient has Hypoxia and Hypercarbia Needs Bipap Neb tx rtc and PRN IV Solumedrol and IV abbx Intubation if necessary (2) COPD with acute exacerbation Current Visit: Yes Status: Acute Plan to address problem: Patient has Hypoxia and Hypercarbia Needs Bipap Neb tx rtc and PRN IV Solumedrol and IV abbx Intubation if necessary Optometric Coordinator Dr Cornelius consulted (3) Pulmonary HTN Current Visit: Yes Status: Acute Plan to address problem: Patient has pedal edema Prob sec to pulm HTN due to COPD Will get ECHO and Cardiolgy consult (4) GERD (gastroesophageal reflux disease) Current Visit: Yes Status: Chronic Qualifiers: Esophagitis presence: with esophagitis Qualified Code(s): K21.0 - Gastro- esophageal reflux disease with esophagitis Plan to address problem: On PPI's (5) DVT prophylaxis Current Visit: Yes Status: Acute Plan to address problem: on Heparin and GI prophylaxis
[2019-02-07 06:16] LABS: Alanine Aminotransferase 9 units/L (7-56); Albumin 3.2 g/dL (3.9-5); BUN/Creatinine Ratio 14; Blood Urea Nitrogen 10 mg/dL (7-17); Calcium 8.6 mg/dL (8.4-10.2); Hemolysis Index 27
[2019-02-07 06:55] LABS: Basophils % (Manual) 0 % (0.0-1.8); Eosinophils % (Manual) 0 % (0.0-4.3); Platelet Estimate Consistent w Auto; Total Cells Counted 100
[2019-02-07] MEDS: BUDESONIDE 0.5 MG/2 ML NEBU IH SCH ×2 (08:37→20:48)
[2019-02-07] MEDS: IPRATROPIUM/ALBUTEROL SULFATE 3 ML AMPUL.NEB IH SCH (08:37)
[2019-02-07] MEDS: ARFORMOTEROL 15 MCG/2 ML NEBU IH SCH (08:38)
[2019-02-07] MEDS ORDERED: IRON 65 MG PO SCH (10:00)
[2019-02-07] MEDS: FAMOTIDINE 20 MG/2 ML INJ IV SCH ×2 (10:02→22:16)
[2019-02-07] MEDS: CALCIUM CARBONATE 500 MG TAB CHEW PO SCH ×2 (10:02→22:16)
[2019-02-07] MEDS: FERROUS SULFATE 325 MG TAB PO SCH (10:02)
[2019-02-07] MEDS: HEPARIN 5,000 UNIT/1 ML VIAL SUB-Q SCH ×2 (10:02→22:16)
[2019-02-07] MEDS: FUROSEMIDE 40 MG/4 ML INJ IV SCH (10:03)
[2019-02-07] MEDS: POTASSIUM CHLORIDE ER 20 MEQ TAB PO SCH (10:03)
--- NOTE | 2019-02-07 11:22 | Consultation ---
<KILLIAN JOHNSON - Last Filed: 02/07/19 13:41> History of Present Illness Consult date: 02/07/19 Consult reason: arrhythmia History of present illness: 73-year old woman with a history of severe COPD, chronic respiratory failure on home O2 who presented with worsening shortness of breath and lower extremity edema. Noted hypoxic on presentation with oxygen saturation in the 80s. On presentation, there were no reports of chest pain or palpitations. An ECG is sinus rhythm with PACs. Chest x-ray reports changes of chronic lung disease. While waiting for a medical bed, she developed a narrow complex tachycardia consistent with SVT. It is uncertain if the tachycardias are triggered by albuterol bronchodilator treatments. She has since reverted to sinus rhythm following intravenous amiodarone. Further cardiac evaluation with an echocardiogram showed a decreased left ventricular systolic function, ejection fraction 35-40%. Cardiology consultation has been requested. Patient is known to [facility] and follows with Dr Greer for palpitations. Two years ago, she wore an event monitor that reports transient atrial tachycardia managed conservatively. There is no prior history of coronary artery disease. An echocardiogram at that time showed a normal left ventricular systolic function, ejection fraction 55%. Medications and Allergies Allergies Allergy/AdvReac Type Severity Reaction Status Date / Time cefaclor [From Ceclor] Allergy Rash Verified 10/26/17 18:05 levofloxacin [From Levaquin] Allergy Anaphylaxis Verified 10/26/17 18:05 Penicillins Allergy Anaphylaxis Verified 10/26/17 18:05 Sulfa (Sulfonamide Allergy Anaphylaxis Verified 10/26/17 18:05 Antibiotics) Home Medications Medication Instructions Recorded Confirmed Last Taken Type ALBUTEROL NEB's [Proventil 0.083% 2.5 mg IH Q6H PRN 01/12/13 02/07/19 06/12/14 History NEBS] Tiotropium [Spiriva] 1 cap IH QDAY 01/12/13 02/07/19 02/06/19 History Iron [Iron 18 MG TAB] 65 mg PO QDAY 06/05/14 02/07/19 02/06/19 History Lansoprazole [Prevacid] 30 mg PO QDAY 06/05/14 02/07/19 02/06/19 History Albuterol Sulfate [Ventolin HFA] 2 puff IH Q6H PRN 10/19/17 02/07/19 Unknown History Budesoni/Formotero 160-4.5(Nf) 2 puff IH QID 10/19/17 02/07/19 02/05/19 History [Symbicort 160-4.5 (Nf)] Phosphorus #1 [K-Phos Neutral] 250 mg PO QID #120 tablet 10/20/17 02/07/19 Unknown Rx Calcium Carbonate [Tums 500MG CHEW] 1,000 mg PO BID 60 Days tablet 10/29/17 02/07/19 02/05/19 Rx Cholecalciferol (Vitamin D3) 50,000 unit PO QWEEK #6 capsule 10/29/17 02/07/19 02/05/19 Rx [Vitamin D3 50,000UNIT CAP] Furosemide [Lasix TAB] 20 mg PO QDAY #30 tablet 02/09/19 Unknown Rx Metoprolol Xl [Metoprolol 25 mg PO QDAY #30 tablet 02/09/19 Unknown Rx SUCCINATE ER TAB] lisinopriL [Zestril TAB] 2.5 mg PO QDAY #30 tablet 02/09/19 Unknown Rx predniSONE [Deltasone] 10 mg PO QDAY #30 tab 02/09/19 Unknown Rx predniSONE [Deltasone] 20 mg PO DAILY #4 tablet 02/09/19 Unknown Rx predniSONE [Deltasone] 40 mg PO DAILY 4 Days tablet 02/09/19 Unknown Rx predniSONE [Deltasone] 60 mg PO QDAY 4 Days tab 02/09/19 Unknown Rx Active Meds: Active Medications Acetaminophen (Tylenol) 650 mg PO Q4H PRN PRN Reason: Pain MILD(1-3)/Fever >100.5/RAMOS Albuterol (Proventil) 2.5 mg IH Q3HRT PRN PRN Reason: Shortness Of Breath Albuterol/Ipratropium (Duoneb *Not For Prn Use*) 1 ampul IH QIDRT [facility] Last Admin: 02/07/19 08:37 Dose: 1 ampul Documented by: Arformoterol Tartrate (Brovana Nebu) 15 mcg IH Q12HRT [facility] Last Admin: 02/07/19 08:38 Dose: Not Given Documented by: Budesonide (Pulmicort) 0.5 mg IH Q12HRT [facility] Last Admin: 12/18/19 08:37 Dose: 0.5 mg Documented by: Calcium Carbonate/Glycine (Tums) 1,000 mg PO BID [facility] Last Admin: 02/07/19 10:02 Dose: 1,000 mg Documented by: Famotidine (Pepcid) 20 mg IV BID [facility] Last Admin: 02/07/19 10:02 Dose: 20 mg Documented by: Ferrous Sulfate (Feosol) 325 mg PO DAILY [facility] Last Admin: 02/07/19 10:02 Dose: 325 mg Documented by: Furosemide (Lasix) 40 mg IV QDAY [facility] Last Admin: 02/07/19 10:03 Dose: 40 mg Documented by: Heparin Sodium (Porcine) (Heparin) 5,000 unit SUB-Q Q12HR [facility] Last Admin: 02/07/19 10:02 Dose: 5,000 unit Documented by: Hydromorphone HCl (Dilaudid) 0.5 mg IV Q3H PRN PRN Reason: Pain , Severe (7-10) Levofloxacin/Dextrose (Levaquin 750mg/150ml) 750 mg in 150 mls @ 100 mls/hr IV Q24H [facility]; Protocol Last Admin: 02/06/19 23:11 Dose: 100 mls/hr Documented by: Amiodarone HCl 900 mg/ (Dextrose) 500 mls @ 33.333 mls/hr IV DIRECT [facility]; Protocol Last Titration: 02/07/19 08:00 Dose: 0.5 mg/min, 16.667 mls/hr Documented by: Methylprednisolone Sodium Succinate (Solu-Medrol) 60 mg IV Q6H [facility] Last Admin: 02/07/19 09:59 Dose: 60 mg Documented by: Ondansetron HCl (Zofran) 4 mg IV Q8H PRN PRN Reason: Nausea And Vomiting Oxycodone/Acetaminophen (Percocet 5/325) 1 tab PO Q6H PRN PRN Reason: Pain, Moderate (4-6) Potassium Chloride (K-Dur) 20 meq PO QDAY [facility] Last Admin: 02/07/19 10:03 Dose: 20 meq Documented by: Sodium Chloride (Sodium Chloride Flush Syringe 10 Ml) 10 ml IV BID [facility] Last Admin: 02/06/19 23:12 Dose: 10 ml Documented by: Sodium Chloride (Sodium Chloride Flush Syringe 10 Ml) 10 ml IV PRN PRN PRN Reason: LINE FLUSH Physical Examination Vital Signs Pulse 103 H 02/06/19 13:19 General appearance: mild distress HEENT: Positive: PERRL Neck: Positive: trachea midline Cardiac: Positive: Tachycardia Lungs: Positive: Decreased Breath Sounds Neuro: Positive: Grossly Intact Results 02/07/19 04:55 02/07/19 04:55 Cardiac Enzymes 02/06/19 02/07/19 Range/Units 13:33 04:55 AST 16 12 (5-40) units/L CK-MB (CK-2) 3.7 (0.0-4.0) ng/mL Coagulation 02/06/19 Range/Units 13:33 PT 12.1 L (12.2-14.9) Sec. INR 0.89 (0.87-1.13) APTT 28.2 (24.2-36.6) Sec. CBC 02/06/19 02/07/19 Range/Units 13:33 04:55 WBC 4.2 L 12.4 H (4.5-11.0) K/mm3 RBC 3.52 L 3.28 L (3.65-5.03) M/mm3 Hgb 12.4 11.6 (10.1-14.3) gm/dl Hct 38.2 35.7 (30.3-42.9) % Plt Count 250 241 (140-440) K/mm3 Lymph # 0.3 L (1.2-5.4) K/mm3 [place] # 0.3 (0.0-0.8) K/mm3 Eos # 0.0 (0.0-0.4) K/mm3 Baso # 0.0 (0.0-0.1) K/mm3 Comprehensive Metabolic Panel 02/06/19 02/07/19 Range/Units 13:33 04:55 Sodium 143 142 (137-145) mmol/L Potassium 4.4 4.5 (3.6-5.0) mmol/L Chloride 96.9 L 99.1 (98-107) mmol/L Carbon Dioxide 35 H 32 H (22-30) mmol/L BUN 6 L 10 (7-17) mg/dL Creatinine 0.5 L 0.7 (0.7-1.2) mg/dL Glucose 90 185 H (65-100) mg/dL Calcium 9.1 8.6 (8.4-10.2) mg/dL AST 16 12 (5-40) units/L ALT 6 L 9 (7-56) units/L Alkaline Phosphatase 45 35 (35-129) units/L Total Protein 6.8 5.6 L (6.3-8.2) g/dL Albumin 4.0 3.2 L (3.9-5) g/dL Assessment and Plan Paroxysmal SVT treated with IV amiodarone; currently in sinus rhythm Dilated CMP, EF 35-40% by echo this admission Chronic respiratory failure on home oxygen Hx of COPD Agree with IV diuretics. We will discontinue intravenous amiodarone and instead use Toprol XL 25mg for suppression of tachyarrhythmias. Consider a switch to Xopenex for bronchodilator management to reduce likelihood of tachyarrhythmias. <KIKI BENOIT - Last Filed: 02/13/19 23:34> Physical Examination Vital Signs Pulse 103 H 02/06/19 13:19 Results 02/08/19 06:59 02/08/19 04:27 Assessment and Plan I have seen and evaluated the patient and agree with the assessment and plan.
--- NOTE | 2019-02-07 11:43 | Consultation ---
History of Present Illness Consult date: 02/07/19 Requesting physician: KIKI VEGA Reason for consult: dyspnea, COPD History of present illness: 73 y/o female with known COPD, chronic respiratory failure followed by Dr. Martines admitted with worsening dyspnea on exertion and acute on chronic respiratory failure. On the floor, had a heart rate of 200. Cards consulted and transferred to ICU. Was given Amio bolus and then started on amio drip. On bipap for respiratory distress. ABG showed hypercapnic respiratory failure. This has since resolved with bipap. patient off now and on home flow of oxygen. still tachypnic. About to eat breakfast. Patient had to be straight cathed as she was having difficulty with urination and had return of 800 cc's of urine. UA is positive as well. Remainder is negative. Past History Past Medical History: COPD, other (chronic respiratory failure) Medications and Allergies Allergies Allergy/AdvReac Type Severity Reaction Status Date / Time cefaclor [From Ceclor] Allergy Rash Verified 10/26/17 18:05 levofloxacin [From Levaquin] Allergy Anaphylaxis Verified 10/26/17 18:05 Penicillins Allergy Anaphylaxis Verified 10/26/17 18:05 Sulfa (Sulfonamide Allergy Anaphylaxis Verified 10/26/17 18:05 Antibiotics) Home Medications Medication Instructions Recorded Confirmed Last Taken Type ALBUTEROL NEB's [Proventil 0.083% 2.5 mg IH Q6H PRN 01/12/13 02/07/19 06/12/14 History NEBS] Tiotropium [Spiriva] 1 cap IH QDAY 01/12/13 02/07/19 02/06/19 History Iron [Iron 18 MG TAB] 65 mg PO QDAY 06/05/14 02/07/19 02/06/19 History Lansoprazole [Prevacid] 30 mg PO QDAY 06/05/14 02/07/19 02/06/19 History Albuterol Sulfate [Ventolin HFA] 2 puff IH Q6H PRN 10/19/17 02/07/19 Unknown History Budesoni/Formotero 160-4.5(Nf) 2 puff IH QID 10/19/17 02/07/19 02/05/19 History [Symbicort 160-4.5 (Nf)] Phosphorus #1 [K-Phos Neutral] 250 mg PO QID #120 tablet 10/20/17 02/07/19 Unknown Rx Calcium Carbonate [Tums 500MG CHEW] 1,000 mg PO BID 60 Days tablet 10/29/17 02/07/19 02/05/19 Rx Cholecalciferol (Vitamin D3) 50,000 unit PO QWEEK #6 capsule 10/29/17 02/07/19 02/05/19 Rx [Vitamin D3 50,000UNIT CAP] Active Meds: Active Medications Acetaminophen (Tylenol) 650 mg PO Q4H PRN PRN Reason: Pain MILD(1-3)/Fever >100.5/RAMOS Albuterol (Proventil) 2.5 mg IH Q3HRT PRN PRN Reason: Shortness Of Breath Albuterol/Ipratropium (Duoneb *Not For Prn Use*) 1 ampul IH QIDRT [facility] Last Admin: 02/07/19 08:37 Dose: 1 ampul Documented by: Arformoterol Tartrate (Brovana Nebu) 15 mcg IH Q12HRT [facility] Last Admin: 02/07/19 08:38 Dose: Not Given Documented by: Budesonide (Pulmicort) 0.5 mg IH Q12HRT [facility] Last Admin: 02/07/19 08:37 Dose: 0.5 mg Documented by: Calcium Carbonate/Glycine (Tums) 1,000 mg PO BID [facility] Last Admin: 02/07/19 10:02 Dose: 1,000 mg Documented by: Famotidine (Pepcid) 20 mg IV BID [facility] Last Admin: 02/07/19 10:02 Dose: 20 mg Documented by: Ferrous Sulfate (Feosol) 325 mg PO DAILY [facility] Last Admin: 02/07/19 10:02 Dose: 325 mg Documented by: Furosemide (Lasix) 40 mg IV QDAY [facility] Last Admin: 02/07/19 10:03 Dose: 40 mg Documented by: Heparin Sodium (Porcine) (Heparin) 5,000 unit SUB-Q Q12HR [facility] Last Admin: 02/07/19 10:02 Dose: 5,000 unit Documented by: Hydromorphone HCl (Dilaudid) 0.5 mg IV Q3H PRN PRN Reason: Pain , Severe (7-10) Levofloxacin/Dextrose (Levaquin 750mg/150ml) 750 mg in 150 mls @ 100 mls/hr IV Q24H [facility]; Protocol Last Admin: 02/06/19 23:11 Dose: 100 mls/hr Documented by: Amiodarone HCl 900 mg/ (Dextrose) 500 mls @ 33.333 mls/hr IV DIRECT [facility]; Protocol Last Titration: 02/07/19 08:00 Dose: 0.5 mg/min, 16.667 mls/hr Documented by: Methylprednisolone Sodium Succinate (Solu-Medrol) 60 mg IV Q6H [facility] Last Admin: 02/07/19 09:59 Dose: 60 mg Documented by: Ondansetron HCl (Zofran) 4 mg IV Q8H PRN PRN Reason: Nausea And Vomiting Oxycodone/Acetaminophen (Percocet 5/325) 1 tab PO Q6H PRN PRN Reason: Pain, Moderate (4-6) Potassium Chloride (K-Dur) 20 meq PO QDAY [facility] Last Admin: 02/07/19 10:03 Dose: 20 meq Documented by: Sodium Chloride (Sodium Chloride Flush Syringe 10 Ml) 10 ml IV BID [facility] Last Admin: 02/06/19 23:12 Dose: 10 ml Documented by: Sodium Chloride (Sodium Chloride Flush Syringe 10 Ml) 10 ml IV PRN PRN PRN Reason: LINE FLUSH Physical Examination Vital signs: Vital Signs Pulse 103 H 02/06/19 13:19 General appearance: other (mild distress) Eyes: non-icteric ENT: oropharynx moist Neck: supple Effort: mildly labored Ascultation: Bilateral: diminished breath sounds, rales Percussion: Bilateral: not dull Tactile fremitus: Bilateral: normal Cardiovascular: regular rate and rhythm Gastrointestinal: normoactive bowel sounds Extremities: edema (trace) normal mental status, non-focal exam Results - Laboratory Findings CBC and BMP: 02/07/19 04:55 02/07/19 04:55 ABG POC ABG pH 7.380 (7.35-7.45) 02/07/19 10:03 ABG pH 7.269 pH Units (7.350-7.450) L 02/07/19 05:25 POC ABG pCO2 65.1 (35-45) H 02/07/19 10:03 ABG pCO2 85.4 mm Hg 02/07/19 05:25 POC ABG pO2 66 (80-105) L 02/07/19 10:03 ABG pO2 93.3 mm Hg (80.0-90.0) H 02/07/19 05:25 POC ABG HCO3 38.5 (22-26 mml/L) 02/07/19 10:03 POC ABG Total CO2 40 (23-27mmol/L) 02/07/19 10:03 POC ABG O2 Sat 91 02/07/19 10:03 ABG O2 Saturation 96.6 % (95.0-99.0) 02/07/19 05:25 PT/INR, D-dimer PT 12.1 Sec. (12.2-14.9) L 02/06/19 13:33 INR 0.89 (0.87-1.13) 02/06/19 13:33 Abnormal lab findings: Abnormal Labs 02/06/19 02/06/19 02/06/19 13:33 13:33 13:33 WBC 4.2 L RBC 3.52 L MCV 109 H MCH 35 H Lymph % (Auto) 7.5 L Lymph # 0.3 L Seg Neutrophils % 85.1 H Seg Neuts % (Manual) Lymphocytes % (Manual) Seg Neutrophils # Man Lymphocytes # (Manual) PT 12.1 L POC ABG pH ABG pH POC ABG pCO2 POC ABG pO2 ABG pO2 ABG HCO3 ABG Base Excess ABG Hemoglobin Oxyhemoglobin Chloride 96.9 L Carbon Dioxide 35 H BUN 6 L Creatinine 0.5 L Glucose Phosphorus ALT 6 L CK-MB (CK-2) Rel Index 4.2 H Total Protein Albumin Urine pH 02/06/19 02/06/19 02/07/19 14:04 Unknown 00:56 WBC RBC MCV MCH Lymph % (Auto) Lymph # Seg Neutrophils % Seg Neuts % (Manual) Lymphocytes % (Manual) Seg Neutrophils # Man Lymphocytes # (Manual) PT POC ABG pH 7.464 H 7.276 L ABG pH POC ABG pCO2 56.1 H POC ABG pO2 50 L 62 L ABG pO2 ABG HCO3 ABG Base Excess ABG Hemoglobin Oxyhemoglobin Chloride Carbon Dioxide BUN Creatinine Glucose Phosphorus ALT CK-MB (CK-2) Rel Index Total Protein Albumin Urine pH 8.0 H 02/07/19 02/07/19 02/07/19 01:35 04:55 04:55 WBC 12.4 H RBC 3.28 L MCV 109 H MCH 35 H Lymph % (Auto) Lymph # Seg Neutrophils % Seg Neuts % (Manual) 94.0 H Lymphocytes % (Manual) 2.0 L Seg Neutrophils # Man 11.7 H Lymphocytes # (Manual) 0.2 L PT POC ABG pH ABG pH 7.253 L POC ABG pCO2 POC ABG pO2 ABG pO2 95.4 H ABG HCO3 35.5 H ABG Base Excess 5.6 H ABG Hemoglobin Oxyhemoglobin 94.5 L Chloride Carbon Dioxide 32 H BUN Creatinine Glucose 185 H Phosphorus ALT CK-MB (CK-2) Rel Index Total Protein 5.6 L Albumin 3.2 L Urine pH 02/07/19 02/07/19 02/07/19 04:55 05:25 10:03 WBC RBC MCV MCH Lymph % (Auto) Lymph # Seg Neutrophils % Seg Neuts % (Manual) Lymphocytes % (Manual) Seg Neutrophils # Man Lymphocytes # (Manual) PT POC ABG pH ABG pH 7.269 L POC ABG pCO2 65.1 H POC ABG pO2 66 L ABG pO2 93.3 H ABG HCO3 38.3 H ABG Base Excess 8.5 H ABG Hemoglobin 11.8 L Oxyhemoglobin 94.6 L Chloride Carbon Dioxide BUN Creatinine Glucose Phosphorus 4.60 H ALT CK-MB (CK-2) Rel Index Total Protein Albumin Urine pH - Diagnostic Findings Chest x-ray: image reviewed Assessment and Plan 73 y/o female with acute on chronic respiratory failure 1. Pulm-Continue Pulmicort and scheduled duonebs. I have stopped brovana therapy. Continue steroids at 60q6. Agree with diuresis as this will help COPD status as well (lungs like it dry). Get as close to euvolemia with daily net negative state as possible. Will continue bipap therapy at night. Given degree of systolic dysfunction, may need PPV at night for central apneas 2. CV-Tachycardia and now with depressed EF on echo. Patient unable to provide any cardiac history of if she has ever had an echo before. None at this hospital. Cards consulted so await their recs. 3. Pending cardiology recs, patient is now stable from rate control standpoint, and from critical care view, can be transferred to telemetry.
--- NOTE | 2019-02-07 15:33 | Progress Note ---
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 History Interval history: Shortness of breath Hospitalist Physical - Physical exam Narrative exam: Gen: Not in acute distress, lying in bed, obese HEENT: Normocephalic, atraumatic Neck: supple, no JVD Heart: S1 and S2 reg, no murmurs, rubs or gallop Lungs: Bilateral rhonchi, wheezing Abd: soft, non tender , non distended, normal BS Ext: No edema, no clubbing, no cyanosis Neuro: Awake,alert, oriented, moves all ext - Constitutional Vitals: Temp Pulse Resp BP Pulse Ox 98.2 F 94 H 34 H 121/59 90 02/07/19 12:00 02/07/19 12:00 02/07/19 12:00 02/07/19 12:00 02/07/19 12:00 Results - Labs CBC & Chem 7: 02/08/19 06:59 02/08/19 04:27 Labs: Laboratory Last Values WBC 12.4 K/mm3 (4.5-11.0) H 02/07/19 04:55 RBC 3.28 M/mm3 (3.65-5.03) L 02/07/19 04:55 Hgb 11.6 gm/dl (10.1-14.3) 02/07/19 04:55 Hct 35.7 % (30.3-42.9) 02/07/19 04:55 MCV 109 fl (79-97) H 02/07/19 04:55 MCH 35 pg (28-32) H 02/07/19 04:55 MCHC 32 % (30-34) 02/07/19 04:55 RDW 14.6 % (13.2-15.2) 02/07/19 04:55 Plt Count 241 K/mm3 (140-440) 02/07/19 04:55 Lymph % (Auto) 7.5 % (13.4-35.0) L 02/06/19 13:33 Pershing % (Auto) 6.1 % (0.0-7.3) 02/06/19 13:33 Eos % (Auto) 1.0 % (0.0-4.3) 02/06/19 13:33 Baso % (Auto) 0.3 % (0.0-1.8) 02/06/19 13:33 Lymph # 0.3 K/mm3 (1.2-5.4) L 02/06/19 13:33 Pershing # 0.3 K/mm3 (0.0-0.8) 02/06/19 13:33 Eos # 0.0 K/mm3 (0.0-0.4) 02/06/19 13:33 Baso # 0.0 K/mm3 (0.0-0.1) 02/06/19 13:33 Add Manual Diff Complete 02/07/19 04:55 Total Counted 100 02/07/19 04:55 Seg Neutrophils % E Business Consultant 02/07/19 04:55 Seg Neuts % (Manual) 94.0 % (40.0-70.0) H 02/07/19 04:55 Band Neutrophils % 0 % 02/07/19 04:55 Lymphocytes % (Manual) 2.0 % (13.4-35.0) L 02/07/19 04:55 Reactive Lymphs % (Man) 0 % 02/07/19 04:55 Monocytes % (Manual) 4.0 % (0.0-7.3) 02/07/19 04:55 Eosinophils % (Manual) 0 % (0.0-4.3) 02/07/19 04:55 Basophils % (Manual) 0 % (0.0-1.8) 02/07/19 04:55 Metamyelocytes % 0 % 02/07/19 04:55 Myelocytes % 0 % 02/07/19 04:55 Promyelocytes % 0 % 02/07/19 04:55 Blast Cells % 0 % 02/07/19 04:55 Nucleated RBC % Not Reportable 02/07/19 04:55 Seg Neutrophils # 3.6 K/mm3 (1.8-7.7) 02/06/19 13:33 Seg Neutrophils # Man 11.7 K/mm3 (1.8-7.7) H 02/07/19 04:55 Band Neutrophils # 0.0 K/mm3 02/07/19 04:55 Lymphocytes # (Manual) 0.2 K/mm3 (1.2-5.4) L 02/07/19 04:55 Abs React Lymphs (Man) 0.0 K/mm3 02/07/19 04:55 Monocytes # (Manual) 0.5 K/mm3 (0.0-0.8) 02/07/19 04:55 Eosinophils # (Manual) 0.0 K/mm3 (0.0-0.4) 02/07/19 04:55 Basophils # (Manual) 0.0 K/mm3 (0.0-0.1) 02/07/19 04:55 Metamyelocytes # 0.0 K/mm3 02/07/19 04:55 Myelocytes # 0.0 K/mm3 02/07/19 04:55 Promyelocytes # 0.0 K/mm3 02/07/19 04:55 Blast Cells # 0.0 K/mm3 02/07/19 04:55 WBC Morphology Not Reportable 02/07/19 04:55 Hypersegmented Neuts Not Reportable 02/07/19 04:55 Hyposegmented Neuts Not Reportable 02/07/19 04:55 Hypogranular Neuts Not Reportable 02/07/19 04:55 Smudge Cells Not Reportable 02/07/19 04:55 Toxic Granulation Not Reportable 02/07/19 04:55 Toxic Vacuolation Not Reportable 02/07/19 04:55 Dohle Bodies Not Reportable 02/07/19 04:55 Pelger-Huet Anomaly Not Reportable 02/07/19 04:55 Juan A Rods Not Reportable 02/07/19 04:55 Platelet Estimate Consistent w auto 02/07/19 04:55 Clumped Platelets Not Reportable 02/07/19 04:55 Plt Clumps, EDTA Not Reportable 02/07/19 04:55 Large Platelets Not Reportable 02/07/19 04:55 Giant Platelets Not Reportable 02/07/19 04:55 Platelet Satelliting Not Reportable 02/07/19 04:55 Plt Morphology Comment Not Reportable 02/07/19 04:55 RBC Morphology Not Reportable 02/07/19 04:55 Dimorphic RBCs Not Reportable 02/07/19 04:55 Polychromasia Not Reportable 02/07/19 04:55 Hypochromasia Not Reportable 02/07/19 04:55 Poikilocytosis Not Reportable 02/07/19 04:55 Anisocytosis Not Reportable 02/07/19 04:55 Microcytosis Not Reportable 02/07/19 04:55 Macrocytosis Not Reportable 02/07/19 04:55 Spherocytes Not Reportable 02/07/19 04:55 Pappenheimer Bodies Not Reportable 02/07/19 04:55 Sickle Cells Not Reportable 02/07/19 04:55 Target Cells Not Reportable 02/07/19 04:55 Tear Drop Cells Not Reportable 02/07/19 04:55 Ovalocytes Not Reportable 02/07/19 04:55 Helmet Cells Not Reportable 02/07/19 04:55 Bunch-Ravia Bodies Not Reportable 02/07/19 04:55 Duke Rings Not Reportable 02/07/19 04:55 Bere Cells Not Reportable 02/07/19 04:55 Bite Cells Not Reportable 02/07/19 04:55 Crenated Cell Not Reportable 02/07/19 04:55 Elliptocytes Not Reportable 02/07/19 04:55 Acanthocytes (Spur) Not Reportable 02/07/19 04:55 Rouleaux Not Reportable 02/07/19 04:55 Hemoglobin C Crystals Not Reportable 02/07/19 04:55 Schistocytes Not Reportable 02/07/19 04:55 Malaria parasites Not Reportable 02/07/19 04:55 Wei Bodies Not Reportable 02/07/19 04:55 Hem Pathologist Commnt No 02/07/19 04:55 PT 12.1 Sec. (12.2-14.9) L 02/06/19 13:33 INR 0.89 (0.87-1.13) 02/06/19 13:33 APTT 28.2 Sec. (24.2-36.6) 02/06/19 13:33 POC ABG pH 7.380 (7.35-7.45) 02/07/19 10:03 ABG pH 7.269 pH Units (7.350-7.450) L 02/07/19 05:25 POC ABG pCO2 65.1 (35-45) H 02/07/19 10:03 ABG pCO2 85.4 mm Hg 02/07/19 05:25 POC ABG pO2 66 (80-105) L 02/07/19 10:03 ABG pO2 93.3 mm Hg (80.0-90.0) H 02/07/19 05:25 POC ABG HCO3 38.5 (22-26 mml/L) 02/07/19 10:03 ABG HCO3 38.3 mmol/L (20.0-26.0) H 02/07/19 05:25 POC ABG Total CO2 40 (23-27mmol/L) 02/07/19 10:03 POC ABG O2 Sat 91 02/07/19 10:03 ABG O2 Saturation 96.6 % (95.0-99.0) 02/07/19 05:25 ABG O2 Content 15.8 (0.0-44) 02/07/19 05:25 POC ABG Base Excess 13 ((-2) - (+3)mmol/L) 02/07/19 10:03 ABG Base Excess 8.5 mmol/L (-2.0-3.0) H 02/07/19 05:25 ABG Hemoglobin 11.8 gm/dl (12.0-16.0) L 02/07/19 05:25 ABG Carboxyhemoglobin 1.6 % (0.0-5.0) 02/07/19 05:25 ABG Methemoglobin 0.5 % (0.0-1.5) 02/07/19 05:25 Oxyhemoglobin 94.6 % (95.0-99.0) L 02/07/19 05:25 FiO2 30 % 02/07/19 10:03 Sodium 142 mmol/L (137-145) 02/07/19 04:55 Potassium 4.5 mmol/L (3.6-5.0) 02/07/19 04:55 Chloride 99.1 mmol/L (98-107) 02/07/19 04:55 Carbon Dioxide 32 mmol/L (22-30) H 02/07/19 04:55 Anion Gap 15 mmol/L 02/07/19 04:55 BUN 10 mg/dL (7-17) 02/07/19 04:55 Creatinine 0.7 mg/dL (0.7-1.2) 02/07/19 04:55 Estimated GFR > 60 ml/min 02/07/19 04:55 BUN/Creatinine Ratio 14 % 02/07/19 04:55 Glucose 185 mg/dL (65-100) H 02/07/19 04:55 Hemoglobin A1c 5.2 % (4-6) 02/06/19 13:33 Calcium 8.6 mg/dL (8.4-10.2) 02/07/19 04:55 Phosphorus 4.60 mg/dL (2.5-4.5) H 02/07/19 04:55 Magnesium 2.00 mg/dL (1.7-2.3) 02/06/19 13:33 Total Bilirubin 0.30 mg/dL (0.1-1.2) 02/07/19 04:55 AST 12 units/L (5-40) 02/07/19 04:55 ALT 9 units/L (7-56) 02/07/19 04:55 Alkaline Phosphatase 35 units/L (35-129) 02/07/19 04:55 Total Creatine Kinase 87 units/L (30-135) 02/06/19 13:33 CK-MB (CK-2) 3.7 ng/mL (0.0-4.0) 02/06/19 13:33 CK-MB (CK-2) Rel Index 4.2 (0-4) H 02/06/19 13:33 Troponin T < 0.010 ng/mL (0.00-0.029) 02/06/19 17:01 NT-Pro-B Natriuret Pep 267.6 pg/mL (0-900) 02/06/19 13:33 Total Protein 5.6 g/dL (6.3-8.2) L 02/07/19 04:55 Albumin 3.2 g/dL (3.9-5) L 02/07/19 04:55 Albumin/Globulin Ratio 1.3 % 02/07/19 04:55 Urine Color Yellow (Yellow) 02/06/19 Unknown Urine Turbidity Slightly-cloudy (Clear) 02/06/19 Unknown Urine pH 8.0 (5.0-7.0) H 02/06/19 Unknown Ur Specific Alligator 1.009 (1.003-1.030) 02/06/19 Unknown Urine Protein <15 mg/dl mg/dL (Negative) 02/06/19 Unknown Urine Glucose (UA) Neg mg/dL (Negative) 02/06/19 Unknown Urine Ketones Tr mg/dL (Negative) 02/06/19 Unknown Urine Blood Neg (Negative) 02/06/19 Unknown Urine Nitrite Pos (Negative) 02/06/19 Unknown Urine Bilirubin Neg (Negative) 02/06/19 Unknown Urine Urobilinogen 2.0 mg/dL (<2.0) 02/06/19 Unknown Ur Leukocyte Esterase Neg (Negative) 02/06/19 Unknown Urine WBC (Auto) < 1.0 /HPF (0.0-6.0) 02/06/19 Unknown Urine RBC (Auto) 6.0 /HPF (0.0-6.0) 02/06/19 Unknown U Epithel Cells (Auto) 2.0 /HPF (0-13.0) 02/06/19 Unknown Urine Bacteria (Auto) 4+ /HPF (Negative) 02/06/19 Unknown Urine Mucus Few /HPF 02/06/19 Unknown Active Medications - Current Medications Current Medications: Generic Name Dose Route Start Last Admin Trade Name Freq PRN Reason Stop Dose Admin Acetaminophen 650 mg 02/06/19 19:33 Tylenol PO Q4H PRN Pain MILD(1-3)/Fever >100.5/RAMOS Budesonide 0.5 mg 02/06/19 21:00 02/07/19 08:37 Pulmicort IH 0.5 mg Q12HRT [facility] Administration Calcium Carbonate/Glycine 1,000 mg 02/06/19 22:00 02/07/19 10:02 Tums PO 1,000 mg BID [facility] Administration Famotidine 20 mg 02/06/19 22:00 02/07/19 10:02 Pepcid IV 20 mg BID [facility] Administration Ferrous Sulfate 325 mg 02/07/19 10:00 02/07/19 10:02 Feosol PO 325 mg DAILY [facility] Administration Furosemide 40 mg 02/07/19 10:00 02/07/19 10:03 Lasix IV 40 mg QDAY [facility] Administration Heparin Sodium (Porcine) 5,000 unit 02/06/19 22:00 02/07/19 10:02 Heparin SUB-Q 5,000 unit Q12HR [facility] Administration Hydromorphone HCl 0.5 mg 02/06/19 19:33 Dilaudid IV Q3H PRN Pain , Severe (7-10) Levofloxacin/Dextrose 750 mg in 150 mls @ 100 mls/hr 02/06/19 21:00 02/06/19 23:11 Levaquin 750mg/150ml IV 100 mls/hr Q24H [facility] Administration Protocol Ipratropium [place] 0.5 mg 02/07/19 14:00 Atrovent IH Q6HRT [facility] Levalbuterol HCl 0.63 mg 02/07/19 14:00 Xopenex IH Q6HRT [facility] Methylprednisolone Sodium Succinate 60 mg 02/06/19 20:00 02/07/19 09:59 Solu-Medrol IV 60 mg Q6H [facility] Administration Metoprolol Succinate 25 mg 02/07/19 14:00 Metoprolol Xl PO QDAY [facility] Ondansetron HCl 4 mg 02/06/19 19:33 Zofran IV Q8H PRN Nausea And Vomiting Oxycodone/Acetaminophen 1 tab 02/06/19 19:33 Percocet 5/325 PO Q6H PRN Pain, Moderate (4-6) Potassium Chloride 20 meq 02/07/19 10:00 02/07/19 10:03 K-Dur PO 20 meq QDAY [facility] Administration Sodium Chloride 10 ml 02/06/19 22:00 02/06/19 23:12 Sodium Chloride Flush Syringe 10 Ml IV 10 ml BID [facility] Administration Sodium Chloride 10 ml 02/06/19 19:33 Sodium Chloride Flush Syringe 10 Ml IV PRN PRN LINE FLUSH
[2019-02-07] MEDS: METOPROLOL SUCCINATE XL 25 MG TAB PO SCH (18:28)
[2019-02-07] MEDS: LEVALBUTEROL 0.63 MG/3 ML NEBU IH SCH ×2 (20:42→20:44)
[2019-02-07] MEDS: IPRATROPIUM 0.02% NEBU 2.5 ML IH SCH ×2 (20:42→20:43)
[2019-02-08] MEDS: IPRATROPIUM/ALBUTEROL SULFATE 3 ML AMPUL.NEB IH SCH (02:22)
[2019-02-08] MEDS: K-PHOS NEUTRAL 250 MG TAB PO SCH (02:22)
[2019-02-08] MEDS: methylPREDNISolone Sod Succinate 125 MG/2 ML INJ IV SCH ×4 (02:50→22:33)
[2019-02-08] MEDS: LEVALBUTEROL 0.63 MG/3 ML NEBU IH SCH ×4 (03:50→19:54)
[2019-02-08] MEDS: IPRATROPIUM 0.02% NEBU 2.5 ML IH SCH ×4 (03:50→19:54)
[2019-02-08 06:13] LABS: BUN/Creatinine Ratio 23; Blood Urea Nitrogen 14 mg/dL (7-17); Calcium 9.1 mg/dL (8.4-10.2); Hemolysis Index 12
[2019-02-08 07:28] LABS: Hematocrit 36.3 % (30.3-42.9); Mean Corpuscular HGB Conc 33 % (30-34); Mean Corpuscular Volume 106 fl (79-97); Platelet Count 242 K/mm3 (140-440); Red Blood Count 3.42 M/mm3 (3.65-5.03); Red Cell Distribution Width 14.4 % (13.2-15.2)
[2019-02-08] MEDS: BUDESONIDE 0.5 MG/2 ML NEBU IH SCH ×2 (08:14→19:53)
[2019-02-08] MEDS: FAMOTIDINE 20 MG/2 ML INJ IV SCH ×2 (09:49→22:30)
[2019-02-08] MEDS: CALCIUM CARBONATE 500 MG TAB CHEW PO SCH ×2 (09:49→22:30)
[2019-02-08] MEDS: FUROSEMIDE 40 MG/4 ML INJ IV SCH (09:49)
[2019-02-08] MEDS: POTASSIUM CHLORIDE ER 20 MEQ TAB PO SCH (09:50)
[2019-02-08] MEDS: FERROUS SULFATE 325 MG TAB PO SCH (09:50)
[2019-02-08] MEDS: METOPROLOL SUCCINATE XL 25 MG TAB PO SCH (09:51)
[2019-02-08] MEDS: HEPARIN 5,000 UNIT/1 ML VIAL SUB-Q SCH ×2 (09:52→22:31)
--- NOTE | 2019-02-08 11:40 | Progress Note ---
Assessment and Plan Paroxysmal SVT treated with IV amiodarone; currently in sinus rhythm; on Toprol XL for suppression Dilated CMP, EF 35-40% by echo this admission Chronic respiratory failure on home oxygen Hx of COPD Subjective Date of service: 02/08/19 Interval history: Stable sinus rhythm on telemetry. Objective Vital Signs Temp Pulse Pulse Pulse Resp Resp BP 02/08/19 10:00 80 80 18 02/08/19 09:51 84 120/60 02/08/19 09:12 85 22 02/08/19 08:21 80 20 02/08/19 08:11 98.0 F 75 20 118/57 02/08/19 03:54 77 21 02/08/19 03:50 97.6 F 80 77 21 21 104/51 02/08/19 01:08 79 02/08/19 00:00 92 H 02/07/19 23:36 91 H 02/07/19 23:11 98.1 F 20 121/68 02/07/19 22:42 77 22 02/07/19 22:41 02/07/19 22:40 82 20 02/07/19 21:50 92 H 02/07/19 20:51 110 H 118/58 02/07/19 20:41 93 H 21 114/65 02/07/19 20:30 95 H 17 114/65 02/07/19 20:21 102 H 23 126/70 02/07/19 20:11 100 H 22 116/69 02/07/19 20:00 104 H 107 H 30 H 116/69 02/07/19 19:51 98 H 23 112/77 02/07/19 19:46 98.2 F 02/07/19 19:41 109 H 20 108/58 02/07/19 19:30 101 H 28 H 108/58 02/07/19 19:21 102 H 35 H 108/66 02/07/19 19:11 108 H 17 106/65 02/07/19 19:00 112 H 20 106/65 02/07/19 18:51 107 H 22 104/62 02/07/19 18:41 129 H 33 H 109/54 02/07/19 18:30 118 H 36 H 109/54 02/07/19 18:28 104 H 109/51 02/07/19 18:21 100 H 18 109/51 02/07/19 18:11 119 H 30 H 115/58 02/07/19 18:00 108 H 22 115/58 02/07/19 17:51 102 H 30 H 112/65 02/07/19 17:41 123 H 15 114/94 02/07/19 17:31 102 H 24 114/94 02/07/19 17:21 133 H 27 H 118/49 02/07/19 17:11 102 H 27 H 110/52 02/07/19 17:00 91 H 25 H 110/52 02/07/19 16:51 112 H 17 107/60 02/07/19 16:41 104 H 12 106/57 02/07/19 16:31 106 H 20 106/57 02/07/19 16:21 104 H 33 H 98/49 02/07/19 16:11 115 H 17 104/56 02/07/19 16:00 98.3 F 108 H 107 H 17 104/56 02/07/19 15:51 106 H 16 117/60 02/07/19 15:41 105 H 15 112/66 02/07/19 15:30 111 H 21 112/66 02/07/19 15:21 111 H 26 H 119/64 02/07/19 15:11 105 H 15 02/07/19 15:00 94 H 28 H 02/07/19 14:50 107 H 27 H 110/66 02/07/19 14:40 109 H 35 H 114/64 02/07/19 14:30 109 H 37 H 114/64 02/07/19 14:20 101 H 24 113/64 02/07/19 14:10 106 H 28 H 113/64 02/07/19 14:00 113 H 25 H 113/64 02/07/19 13:50 104 H 23 117/70 02/07/19 13:40 100 H 29 H 115/61 02/07/19 13:30 105 H 28 H 115/61 02/07/19 13:20 109 H 29 H 104/58 02/07/19 13:10 102 H 26 H 108/57 02/07/19 13:00 105 H 24 108/57 02/07/19 12:50 122 H 37 H 115/62 02/07/19 12:40 112 H 24 112/67 02/07/19 12:30 101 H 23 112/67 02/07/19 12:20 112 H 19 116/63 02/07/19 12:10 117 H 19 118/55 02/07/19 12:00 98.2 F 94 H 94 H 34 H 121/59 02/07/19 11:50 105 H 26 H 121/59 02/07/19 11:40 93 H 26 H 105/60 Pulse Ox 02/08/19 10:00 02/08/19 09:51 02/08/19 09:12 02/08/19 08:21 92 02/08/19 08:11 93 02/08/19 03:54 100 02/08/19 03:50 100 02/08/19 01:08 02/08/19 00:00 02/07/19 23:36 91 02/07/19 23:11 02/07/19 22:42 94 02/07/19 22:41 90 02/07/19 22:40 02/07/19 21:50 02/07/19 20:51 93 02/07/19 20:41 94 02/07/19 20:30 90 02/07/19 20:21 90 02/07/19 20:11 89 18 20:00 92 02/07/19 19:51 92 18 19:46 02/07/19 19:41 90 18 19:30 86 1819 19:21 89 1819 19:11 91 1819 19:00 91 02/07/19 18:51 93 18 18:41 93 18 18:30 86 1819 18:28 121819 18:21 91 1819 18:11 88 1819 18:00 92 1819 17:51 91 1819 17:41 92 1819 17:31 84 1819 17:21 92 1819 17:11 90 1819 17:00 94 19 16:51 88 1819 16:41 92 1819 16:31 92 1819 16:21 91 18 16:11 86 18 16:00 92 02/07/19 15:51 91 02/07/19 15:41 95 02/07/19 15:30 97 02/07/19 15:21 100 02/07/19 15:11 100 02/07/19 15:00 88 02/07/19 14:50 90 02/07/19 14:40 87 02/07/19 14:30 87 02/07/19 14:20 85 02/07/19 14:10 87 02/07/19 14:00 89 02/07/19 13:50 90 02/07/19 13:40 90 02/07/19 13:30 89 02/07/19 13:20 91 02/07/19 13:10 89 02/07/19 13:00 90 02/07/19 12:50 88 02/07/19 12:40 84 02/07/19 12:30 87 02/07/19 12:20 89 02/07/19 12:10 88 02/07/19 12:00 90 02/07/19 11:50 85 02/07/19 11:40 91 - Physical Examination General: No Apparent Distress HEENT: Positive: PERRL Neck: Positive: trachea midline Cardiac: Positive: Reg Rate and Rhythm Lungs: Positive: Decreased Breath Sounds Neuro: Positive: Grossly Intact - Labs and Meds CBC 02/08/19 Range/Units 06:59 WBC 7.4 (4.5-11.0) K/mm3 RBC 3.42 L (3.65-5.03) M/mm3 Hgb 12.0 (10.1-14.3) gm/dl Hct 36.3 (30.3-42.9) % Plt Count 242 (140-440) K/mm3 Comprehensive Metabolic Panel 02/08/19 Range/Units 04:27 Sodium 139 (137-145) mmol/L Potassium 4.5 (3.6-5.0) mmol/L Chloride 94.2 L (98-107) mmol/L Carbon Dioxide 32 H (22-30) mmol/L BUN 14 (7-17) mg/dL Creatinine 0.6 L (0.7-1.2) mg/dL Glucose 123 H (65-100) mg/dL Calcium 9.1 (8.4-10.2) mg/dL
--- NOTE | 2019-02-08 13:08 | Progress Note ---
Assessment and Plan 73 y/o female with acute on chronic respiratory failure 1. Pulm-Continue Pulmicort and scheduled duonebs. I have stopped brovana therapy. Continue steroids at 60q6. Agree with diuresis as this will help COPD status as well (lungs like it dry). Get as close to euvolemia with daily net negative state as possible. Will continue bipap therapy at night. Given degree of systolic dysfunction, may need PPV at night for central apneas. Will discuss with CM. May need something like trilogy until a sleep study can be done. 2. CV-Tachycardia and now with depressed EF on echo. Patient unable to provide any cardiac history of if she has ever had an echo before. None at this hospital. Cards consulted, follow up their recs from today. Subjective Date of service: 02/08/19 Interval history: No acute events. Stable on floor. Wore bipap last night. Objective Vital Signs - 12hr 02/08/19 02/08/19 02/08/19 01:08 03:50 03:54 Temperature 97.6 F Pulse Rate 79 80 77 Pulse Rate [ 77 Bilateral] Pulse Rate [ From Monitor] Respiratory 21 21 Rate Respiratory 21 Rate [Bilateral ] Blood Pressure 104/51 Blood Pressure [Left] O2 Sat by Pulse 100 100 Oximetry 02/08/19 02/08/19 02/08/19 08:11 08:21 09:12 Temperature 98.0 F Pulse Rate 75 Pulse Rate [ 80 85 Bilateral] Pulse Rate [ From Monitor] Respiratory 20 Rate Respiratory 20 22 Rate [Bilateral ] Blood Pressure 118/57 Blood Pressure [Left] O2 Sat by Pulse 93 92 Oximetry 02/08/19 02/08/19 02/08/19 09:51 10:00 13:01 Temperature 97.9 F Pulse Rate 84 80 82 Pulse Rate [ Bilateral] Pulse Rate [ 80 From Monitor] Respiratory 18 18 Rate Respiratory Rate [Bilateral ] Blood Pressure 120/60 Blood Pressure 120/72 [Left] O2 Sat by Pulse 95 Oximetry Constitutional: other (mild distress) Eyes: non-icteric ENT: oropharynx moist Neck: supple Effort: mildly labored Ascultation: Bilateral: diminished breath sounds, rales Percussion: Bilateral: not dull Tactile fremitus: Bilateral: normal Cardiovascular: regular rate and rhythm Gastrointestinal: normoactive bowel sounds Extremities: edema (trace) Neurologic: normal mental status, non-focal exam CBC and BMP: 02/08/19 06:59 02/08/19 04:27 ABG, PT/INR, D-dimer: ABG POC ABG pH 7.380 (7.35-7.45) 02/07/19 10:03 ABG pH 7.269 pH Units (7.350-7.450) L 02/07/19 05:25 POC ABG pCO2 65.1 (35-45) H 02/07/19 10:03 ABG pCO2 85.4 mm Hg 02/07/19 05:25 POC ABG pO2 66 (80-105) L 02/07/19 10:03 ABG pO2 93.3 mm Hg (80.0-90.0) H 02/07/19 05:25 POC ABG HCO3 38.5 (22-26 mml/L) 02/07/19 10:03 POC ABG Total CO2 40 (23-27mmol/L) 02/07/19 10:03 POC ABG O2 Sat 91 02/07/19 10:03 ABG O2 Saturation 96.6 % (95.0-99.0) 02/07/19 05:25 PT/INR, D-dimer PT 12.1 Sec. (12.2-14.9) L 02/06/19 13:33 INR 0.89 (0.87-1.13) 02/06/19 13:33 Abnormal lab findings: Abnormal Labs 02/06/19 02/06/19 02/06/19 13:33 13:33 13:33 WBC 4.2 L RBC 3.52 L MCV 109 H MCH 35 H Lymph % (Auto) 7.5 L Lymph # 0.3 L Seg Neutrophils % 85.1 H Seg Neuts % (Manual) Lymphocytes % (Manual) Seg Neutrophils # Man Lymphocytes # (Manual) PT 12.1 L POC ABG pH ABG pH POC ABG pCO2 POC ABG pO2 ABG pO2 ABG HCO3 ABG Base Excess ABG Hemoglobin Oxyhemoglobin Chloride 96.9 L Carbon Dioxide 35 H BUN 6 L Creatinine 0.5 L Glucose Phosphorus ALT 6 L CK-MB (CK-2) Rel Index 4.2 H Total Protein Albumin Urine pH 02/06/19 02/06/19 02/07/19 14:04 Unknown 00:56 WBC RBC MCV MCH Lymph % (Auto) Lymph # Seg Neutrophils % Seg Neuts % (Manual) Lymphocytes % (Manual) Seg Neutrophils # Man Lymphocytes # (Manual) PT POC ABG pH 7.464 H 7.276 L ABG pH POC ABG pCO2 56.1 H POC ABG pO2 50 L 62 L ABG pO2 ABG HCO3 ABG Base Excess ABG Hemoglobin Oxyhemoglobin Chloride Carbon Dioxide BUN Creatinine Glucose Phosphorus ALT CK-MB (CK-2) Rel Index Total Protein Albumin Urine pH 8.0 H 02/07/19 02/07/19 02/07/19 01:35 04:55 04:55 WBC 12.4 H RBC 3.28 L MCV 109 H MCH 35 H Lymph % (Auto) Lymph # Seg Neutrophils % Seg Neuts % (Manual) 94.0 H Lymphocytes % (Manual) 2.0 L Seg Neutrophils # Man 11.7 H Lymphocytes # (Manual) 0.2 L PT POC ABG pH ABG pH 7.253 L POC ABG pCO2 POC ABG pO2 ABG pO2 95.4 H ABG HCO3 35.5 H ABG Base Excess 5.6 H ABG Hemoglobin Oxyhemoglobin 94.5 L Chloride Carbon Dioxide 32 H BUN Creatinine Glucose 185 H Phosphorus ALT CK-MB (CK-2) Rel Index Total Protein 5.6 L Albumin 3.2 L Urine pH 02/07/19 02/07/19 02/07/19 04:55 05:25 10:03 WBC RBC MCV MCH Lymph % (Auto) Lymph # Seg Neutrophils % Seg Neuts % (Manual) Lymphocytes % (Manual) Seg Neutrophils # Man Lymphocytes # (Manual) PT POC ABG pH ABG pH 7.269 L POC ABG pCO2 65.1 H POC ABG pO2 66 L ABG pO2 93.3 H ABG HCO3 38.3 H ABG Base Excess 8.5 H ABG Hemoglobin 11.8 L Oxyhemoglobin 94.6 L Chloride Carbon Dioxide BUN Creatinine Glucose Phosphorus 4.60 H ALT CK-MB (CK-2) Rel Index Total Protein Albumin Urine pH 02/08/19 02/08/19 04:27 06:59 WBC RBC 3.42 L MCV 106 H MCH 35 H Lymph % (Auto) Lymph # Seg Neutrophils % Seg Neuts % (Manual) Lymphocytes % (Manual) Seg Neutrophils # Man Lymphocytes # (Manual) PT POC ABG pH ABG pH POC ABG pCO2 POC ABG pO2 ABG pO2 ABG HCO3 ABG Base Excess ABG Hemoglobin Oxyhemoglobin Chloride 94.2 L Carbon Dioxide 32 H BUN Creatinine 0.6 L Glucose 123 H Phosphorus ALT CK-MB (CK-2) Rel Index Total Protein Albumin Urine pH
--- NOTE | 2019-02-08 14:17 | Progress Note ---
Assessment and Plan Assessment and plan: Acute on chronic respiratory failure with hypoxia and hypercapnia patient has Hypoxia and Hypercarbia Bipap, IV Solumedrol Pulm consulted, following COPD with acute exacerbation Patient has Hypoxia and Hypercarbia Needs Bipap Neb tx rtc and PRN IV Solumedrol and IV abbx Pulm following Cardiomyopathy EF 35-40% Cardiology following paroxysmal SVT Managed with Amiodarone Now on Metoprolol Gastroesophageal reflux disease Full code status. Patient upset she was given Levaquin when she is allergic to Levaquin. I discussed with Nurse and Charge Nurse. Risk management consulted. I discussed with patient and son at bedside. History Interval history: Shortness of breath Hospitalist Physical - Physical exam Narrative exam: Gen: Not in acute distress, lying in bed, obese HEENT: Normocephalic, atraumatic Neck: supple, no JVD Heart: S1 and S2 reg, no murmurs, rubs or gallop Lungs: Bilateral rhonchi, wheezing Abd: soft, non tender , non distended, normal BS Ext: No edema, no clubbing, no cyanosis Neuro: Awake,alert, oriented, moves all ext - Constitutional Vitals: Temp Pulse Resp BP Pulse Ox 97.9 F 74 22 120/72 95 02/08/19 13:01 02/08/19 13:56 02/08/19 13:56 02/08/19 13:01 02/08/19 13:01 Results - Labs CBC & Chem 7: 02/08/19 06:59 02/08/19 04:27 Labs: Laboratory Last Values WBC 7.4 K/mm3 (4.5-11.0) 02/08/19 06:59 RBC 3.42 M/mm3 (3.65-5.03) L 02/08/19 06:59 Hgb 12.0 gm/dl (10.1-14.3) 02/08/19 06:59 Hct 36.3 % (30.3-42.9) 02/08/19 06:59 MCV 106 fl (79-97) H 02/08/19 06:59 MCH 35 pg (28-32) H 02/08/19 06:59 MCHC 33 % (30-34) 02/08/19 06:59 RDW 14.4 % (13.2-15.2) 02/08/19 06:59 Plt Count 242 K/mm3 (140-440) 02/08/19 06:59 Lymph % (Auto) 7.5 % (13.4-35.0) L 02/06/19 13:33 [place] % (Auto) 6.1 % (0.0-7.3) 02/06/19 13:33 Eos % (Auto) 1.0 % (0.0-4.3) 02/06/19 13:33 Baso % (Auto) 0.3 % (0.0-1.8) 02/06/19 13:33 Lymph # 0.3 K/mm3 (1.2-5.4) L 02/06/19 13:33 [place] # 0.3 K/mm3 (0.0-0.8) 02/06/19 13:33 Eos # 0.0 K/mm3 (0.0-0.4) 02/06/19 13:33 Baso # 0.0 K/mm3 (0.0-0.1) 02/06/19 13:33 Add Manual Diff Complete 02/07/19 04:55 Total Counted 100 02/07/19 04:55 Seg Neutrophils % [employer] Machine 02/07/19 04:55 Seg Neuts % (Manual) 94.0 % (40.0-70.0) H 02/07/19 04:55 Band Neutrophils % 0 % 02/07/19 04:55 Lymphocytes % (Manual) 2.0 % (13.4-35.0) L 02/07/19 04:55 Reactive Lymphs % (Man) 0 % 02/07/19 04:55 Monocytes % (Manual) 4.0 % (0.0-7.3) 02/07/19 04:55 Eosinophils % (Manual) 0 % (0.0-4.3) 02/07/19 04:55 Basophils % (Manual) 0 % (0.0-1.8) 02/07/19 04:55 Metamyelocytes % 0 % 02/07/19 04:55 Myelocytes % 0 % 02/07/19 04:55 Promyelocytes % 0 % 02/07/19 04:55 Blast Cells % 0 % 02/07/19 04:55 Nucleated RBC % Not Reportable 02/07/19 04:55 Seg Neutrophils # 3.6 K/mm3 (1.8-7.7) 02/06/19 13:33 Seg Neutrophils # Man 11.7 K/mm3 (1.8-7.7) H 02/07/19 04:55 Band Neutrophils # 0.0 K/mm3 02/07/19 04:55 Lymphocytes # (Manual) 0.2 K/mm3 (1.2-5.4) L 02/07/19 04:55 Abs React Lymphs (Man) 0.0 K/mm3 02/07/19 04:55 Monocytes # (Manual) 0.5 K/mm3 (0.0-0.8) 02/07/19 04:55 Eosinophils # (Manual) 0.0 K/mm3 (0.0-0.4) 02/07/19 04:55 Basophils # (Manual) 0.0 K/mm3 (0.0-0.1) 02/07/19 04:55 Metamyelocytes # 0.0 K/mm3 02/07/19 04:55 Myelocytes # 0.0 K/mm3 02/07/19 04:55 Promyelocytes # 0.0 K/mm3 02/07/19 04:55 Blast Cells # 0.0 K/mm3 02/07/19 04:55 WBC Morphology Not Reportable 02/07/19 04:55 Hypersegmented Neuts Not Reportable 02/07/19 04:55 Hyposegmented Neuts Not Reportable 02/07/19 04:55 Hypogranular Neuts Not Reportable 02/07/19 04:55 Smudge Cells Not Reportable 02/07/19 04:55 Toxic Granulation Not Reportable 02/07/19 04:55 Toxic Vacuolation Not Reportable 02/07/19 04:55 Dohle Bodies Not Reportable 02/07/19 04:55 Pelger-Huet Anomaly Not Reportable 02/07/19 04:55 Juan A Rods Not Reportable 02/07/19 04:55 Platelet Estimate Consistent w auto 02/07/19 04:55 Clumped Platelets Not Reportable 02/07/19 04:55 Plt Clumps, EDTA Not Reportable 02/07/19 04:55 Large Platelets Not Reportable 02/07/19 04:55 Giant Platelets Not Reportable 02/07/19 04:55 Platelet Satelliting Not Reportable 02/07/19 04:55 Plt Morphology Comment Not Reportable 02/07/19 04:55 RBC Morphology Not Reportable 02/07/19 04:55 Dimorphic RBCs Not Reportable 02/07/19 04:55 Polychromasia Not Reportable 02/07/19 04:55 Hypochromasia Not Reportable 02/07/19 04:55 Poikilocytosis Not Reportable 02/07/19 04:55 Anisocytosis Not Reportable 02/07/19 04:55 Microcytosis Not Reportable 02/07/19 04:55 Macrocytosis Not Reportable 02/07/19 04:55 Spherocytes Not Reportable 02/07/19 04:55 Pappenheimer Bodies Not Reportable 02/07/19 04:55 Sickle Cells Not Reportable 02/07/19 04:55 Target Cells Not Reportable 02/07/19 04:55 Tear Drop Cells Not Reportable 02/07/19 04:55 Ovalocytes Not Reportable 02/07/19 04:55 Helmet Cells Not Reportable 02/07/19 04:55 [place] Bodies Not Reportable 02/07/19 04:55 [place] Rings Not Reportable 02/07/19 04:55 [place] Cells Not Reportable 02/07/19 04:55 Bite Cells Not Reportable 02/07/19 04:55 Crenated Cell Not Reportable 02/07/19 04:55 Elliptocytes Not Reportable 02/07/19 04:55 Acanthocytes (Spur) Not Reportable 02/07/19 04:55 Rouleaux Not Reportable 02/07/19 04:55 Hemoglobin C Crystals Not Reportable 02/07/19 04:55 Schistocytes Not Reportable 02/07/19 04:55 Malaria parasites Not Reportable 02/07/19 04:55 Wei Bodies Not Reportable 02/07/19 04:55 Hem Pathologist Commnt No 02/07/19 04:55 PT 12.1 Sec. (12.2-14.9) L 02/06/19 13:33 INR 0.89 (0.87-1.13) 02/06/19 13:33 APTT 28.2 Sec. (24.2-36.6) 02/06/19 13:33 POC ABG pH 7.380 (7.35-7.45) 02/07/19 10:03 ABG pH 7.269 pH Units (7.350-7.450) L 02/07/19 05:25 POC ABG pCO2 65.1 (35-45) H 02/07/19 10:03 ABG pCO2 85.4 mm Hg 02/07/19 05:25 POC ABG pO2 66 (80-105) L 02/07/19 10:03 ABG pO2 93.3 mm Hg (80.0-90.0) H 02/07/19 05:25 POC ABG HCO3 38.5 (22-26 mml/L) 02/07/19 10:03 ABG HCO3 38.3 mmol/L (20.0-26.0) H 02/07/19 05:25 POC ABG Total CO2 40 (23-27mmol/L) 02/07/19 10:03 POC ABG O2 Sat 91 02/07/19 10:03 ABG O2 Saturation 96.6 % (95.0-99.0) 02/07/19 05:25 ABG O2 Content 15.8 (0.0-44) 02/07/19 05:25 POC ABG Base Excess 13 ((-2) - (+3)mmol/L) 02/07/19 10:03 ABG Base Excess 8.5 mmol/L (-2.0-3.0) H 02/07/19 05:25 ABG Hemoglobin 11.8 gm/dl (12.0-16.0) L 02/07/19 05:25 ABG Carboxyhemoglobin 1.6 % (0.0-5.0) 02/07/19 05:25 ABG Methemoglobin 0.5 % (0.0-1.5) 02/07/19 05:25 Oxyhemoglobin 94.6 % (95.0-99.0) L 02/07/19 05:25 FiO2 30 % 02/07/19 10:03 Sodium 139 mmol/L (137-145) 02/08/19 04:27 Potassium 4.5 mmol/L (3.6-5.0) 02/08/19 04:27 Chloride 94.2 mmol/L (98-107) L 02/08/19 04:27 Carbon Dioxide 32 mmol/L (22-30) H 02/08/19 04:27 Anion Gap 17 mmol/L 02/08/19 04:27 BUN 14 mg/dL (7-17) 02/08/19 04:27 Creatinine 0.6 mg/dL (0.7-1.2) L 02/08/19 04:27 Estimated GFR > 60 ml/min 02/08/19 04:27 BUN/Creatinine Ratio 23 % 02/08/19 04:27 Glucose 123 mg/dL (65-100) H 02/08/19 04:27 POC Glucose 102 (70-105) 02/07/19 16:42 Hemoglobin A1c 5.2 % (4-6) 02/06/19 13:33 Calcium 9.1 mg/dL (8.4-10.2) 02/08/19 04:27 Phosphorus 4.60 mg/dL (2.5-4.5) H 02/07/19 04:55 Magnesium 2.00 mg/dL (1.7-2.3) 02/06/19 13:33 Total Bilirubin 0.30 mg/dL (0.1-1.2) 02/07/19 04:55 AST 12 units/L (5-40) 02/07/19 04:55 ALT 9 units/L (7-56) 02/07/19 04:55 Alkaline Phosphatase 35 units/L (35-129) 02/07/19 04:55 Total Creatine Kinase 87 units/L (30-135) 02/06/19 13:33 CK-MB (CK-2) 3.7 ng/mL (0.0-4.0) 02/06/19 13:33 CK-MB (CK-2) Rel Index 4.2 (0-4) H 02/06/19 13:33 Troponin T < 0.010 ng/mL (0.00-0.029) 02/06/19 17:01 NT-Pro-B Natriuret Pep 267.6 pg/mL (0-900) 02/06/19 13:33 Total Protein 5.6 g/dL (6.3-8.2) L 02/07/19 04:55 Albumin 3.2 g/dL (3.9-5) L 02/07/19 04:55 Albumin/Globulin Ratio 1.3 % 02/07/19 04:55 Urine Color Yellow (Yellow) 02/06/19 Unknown Urine Turbidity Slightly-cloudy (Clear) 02/06/19 Unknown Urine pH 8.0 (5.0-7.0) H 02/06/19 Unknown Ur Specific [place] 1.009 (1.003-1.030) 02/06/19 Unknown Urine Protein <15 mg/dl mg/dL (Negative) 02/06/19 Unknown Urine Glucose (UA) Neg mg/dL (Negative) 02/06/19 Unknown Urine Ketones Tr mg/dL (Negative) 02/06/19 Unknown Urine Blood Neg (Negative) 02/06/19 Unknown Urine Nitrite Pos (Negative) 02/06/19 Unknown Urine Bilirubin Neg (Negative) 02/06/19 Unknown Urine Urobilinogen 2.0 mg/dL (<2.0) 02/06/19 Unknown Ur Leukocyte Esterase Neg (Negative) 02/06/19 Unknown Urine WBC (Auto) < 1.0 /HPF (0.0-6.0) 02/06/19 Unknown Urine RBC (Auto) 6.0 /HPF (0.0-6.0) 02/06/19 Unknown U Epithel Cells (Auto) 2.0 /HPF (0-13.0) 02/06/19 Unknown Urine Bacteria (Auto) 4+ /HPF (Negative) 02/06/19 Unknown Urine Mucus Few /HPF 02/06/19 Unknown Active Medications - Current Medications Current Medications: Generic Name Dose Route Start Last Admin Trade Name Freq PRN Reason Stop Dose Admin Acetaminophen 650 mg 02/06/19 19:33 Tylenol PO Q4H PRN Pain MILD(1-3)/Fever >100.5/RAMOS Budesonide 0.5 mg 02/06/19 21:00 02/08/19 08:14 Pulmicort IH 0.5 mg Q12HRT MARSHALL Administration Calcium Carbonate/Glycine 1,000 mg 02/06/19 22:00 02/08/19 09:49 Tums PO 1,000 mg BID MARSHALL Administration Famotidine 20 mg 02/06/19 22:00 02/08/19 09:49 Pepcid IV 20 mg BID MARSHALL Administration Ferrous Sulfate 325 mg 02/07/19 10:00 02/08/19 09:50 Feosol PO 325 mg DAILY MARSHALL Administration Furosemide 40 mg 02/07/19 10:00 02/08/19 09:49 Lasix IV 40 mg QDAY MARSHALL Administration Heparin Sodium (Porcine) 5,000 unit 02/06/19 22:00 02/08/19 09:52 Heparin SUB-Q 5,000 unit Q12HR MARSHALL Administration Hydromorphone HCl 0.5 mg 02/06/19 19:33 Dilaudid IV Q3H PRN Pain , Severe (7-10) Ipratropium [place] 0.5 mg 02/07/19 14:00 02/08/19 13:56 Atrovent IH 0.5 mg Q6HRT MARSHALL Administration Levalbuterol HCl 0.63 mg 02/07/19 14:00 02/08/19 13:56 Xopenex IH 0.63 mg Q6HRT MARSHALL Administration Methylprednisolone Sodium Succinate 60 mg 02/06/19 20:00 02/08/19 09:57 Solu-Medrol IV 60 mg Q6H MARSHALL Administration Metoprolol Succinate 25 mg 02/07/19 14:00 02/08/19 09:51 Metoprolol Xl PO 25 mg QDAY MARSHALL Administration Miscellaneous Medication 30 mg 02/08/19 15:00 Lansoprazole [Prevacid] PO QDAY MARSHALL Ondansetron HCl 4 mg 02/06/19 19:33 Zofran IV Q8H PRN Nausea And Vomiting Oxycodone/Acetaminophen 1 tab 02/06/19 19:33 Percocet 5/325 PO Q6H PRN Pain, Moderate (4-6) Potassium Chloride 20 meq 02/07/19 10:00 02/08/19 09:50 K-Dur PO 20 meq QDAY MARSHALL Administration Sodium Chloride 10 ml 02/06/19 22:00 02/08/19 09:52 Sodium Chloride Flush Syringe 10 Ml IV 10 ml BID MARSHALL Administration Sodium Chloride 10 ml 02/06/19 19:33 Sodium Chloride Flush Syringe 10 Ml IV PRN PRN LINE FLUSH
--- NOTE | 2019-02-08 14:58 | Event Note ---
Date: 02/08/19 73-year-old woman with severe, oxygen dependent COPD, admitted with exacerbation of COPD, hypoxemia and respiratory insufficiency. During her treatment here with bronchodilators and antibiotics, she developed rapid atrial fibrillation, and was treated with intravenous amiodarone with successful resolution back to sinus rhythm. Her sinus ECGs showed no acute ischemia or infarction. Echocardiogram on this presentation shows a moderate severity cardiomyopathy with ejection fraction 35-40%. The chronicity of the cardiomyopathy is uncertain, as no prior left ventricular function assessment in the hospital records. Chest x-ray shows evidence of chronic lung disease, but no interstitial edema and no heart failure. Currently, the patient remains significantly dyspneic, with COPD exacerbation. Recommendations: We will treat paroxysmal atrial fibrillation with amiodarone and diltiazem. Due to severe COPD, we will avoid beta blockers. Prior to discharge, the patient should be started on oral anticoagulation, Eliquis 5mg BID. Add lisinopril 5 mg daily for underlying cardiomyopathy. Continue furosemide and add spironolactone 25 mg daily. Otherwise, no further cardiac workup is indicated in this patient with end-stage COPD. We will sign off and follow on a when necessary basis.
[2019-02-08] MEDS ORDERED: dilTIAZem CD 240 MG CAP PO SCH (15:00)
[2019-02-08] MEDS: AMIODARONE 200 MG TAB PO SCH (15:00)
[2019-02-08] MEDS ORDERED: LISINOPRIL 5 MG TAB PO SCH (15:00)
[2019-02-08] MEDS ORDERED: LANSOPRAZOLE 30 MG PO SCH (15:00)
[2019-02-08] MEDS ORDERED: SPIRONOLACTONE 25 MG TAB PO SCH (15:00)
[2019-02-09] MEDS: LEVALBUTEROL 0.63 MG/3 ML NEBU IH SCH ×3 (02:24→14:47)
[2019-02-09] MEDS: IPRATROPIUM 0.02% NEBU 2.5 ML IH SCH ×3 (02:24→14:47)
[2019-02-09] MEDS: methylPREDNISolone Sod Succinate 125 MG/2 ML INJ IV SCH ×3 (02:40→15:06)
[2019-02-09 05:25] VITALS: BP 104/60
[2019-02-09] MEDS: BUDESONIDE 0.5 MG/2 ML NEBU IH SCH (08:17)
[2019-02-09] MEDS: CALCIUM CARBONATE 500 MG TAB CHEW PO SCH (09:39)
[2019-02-09] MEDS: FERROUS SULFATE 325 MG TAB PO SCH (09:41)
[2019-02-09] MEDS: AMIODARONE 200 MG TAB PO SCH (09:41)
[2019-02-09] MEDS: FAMOTIDINE 20 MG/2 ML INJ IV SCH (09:44)
[2019-02-09] MEDS: HEPARIN 5,000 UNIT/1 ML VIAL SUB-Q SCH (10:00)
--- NOTE | 2019-02-09 13:00 | Progress Note ---
Assessment and Plan Acute COPD exacerbation CO2 retention Cardiomyopathy, new onset with LVEF 35-40% SVT - doubt atrial fibrillation Recommendations: Change diltiazem to toprol XL and reduce lisinopril to 2.5 mg po daily given underlying cardiomyopathy Continue po diuresis with lasix 20 mg daily Patient will follow-up with me as outpatient for an ischemic evaluation and event monitor Extensively discussed with son and patient at the bedside Subjective Date of service: 02/09/19 Principal diagnosis: Shortness of breath Interval history: Patient is doing well this morning. Her SOB is improving. No further SVT recorded on tele Objective Vital Signs Temp Pulse Pulse Pulse Pulse Resp Resp 02/09/19 08:19 74 18 02/09/19 05:21 98.4 F 87 18 02/09/19 02:25 72 18 02/09/19 02:20 74 21 02/09/19 00:04 98.3 F 68 18 02/08/19 22:25 92 H 92 H 20 02/08/19 22:05 22 02/08/19 21:00 98.0 F 18 02/08/19 19:58 68 20 02/08/19 19:55 02/08/19 19:40 92 H 02/08/19 16:46 98.4 F 95 H 20 02/08/19 14:37 79 20 02/08/19 13:56 74 22 02/08/19 13:01 97.9 F 82 18 BP BP Pulse Ox 02/09/19 08:19 95 02/09/19 05:21 104/60 78 L 02/09/19 02:25 02/09/19 02:20 99 02/09/19 00:04 112/57 96 02/08/19 22:25 02/08/19 22:05 98 02/08/19 21:00 79/61 02/08/19 19:58 02/08/19 19:55 91 02/08/19 19:40 02/08/19 16:46 115/58 89 02/08/19 14:37 02/08/19 13:56 02/08/19 13:01 120/72 95 - Physical Examination General: No Apparent Distress HEENT: Positive: PERRL Neck: Positive: trachea midline Cardiac: Positive: Reg Rate and Rhythm Lungs: Positive: Decreased Breath Sounds Neuro: Positive: Grossly Intact - Imaging and Cardiology EKG: report reviewed (Sinus tach with pvc's)
--- NOTE | 2019-02-09 13:21 | Progress Note ---
Assessment and Plan 73 y/o female with acute on chronic respiratory failure At discharge please do the following: Steroid taper 60 daily for 4 days, 40 daily for 4 days, 20 daily for 4 days then 10 daily indefinitely (patient was on 10 daily at home prior to admit) Patient should stop taking albuterol nebulizer every 6 hours at home and only use when needed. She will continue Symbicort and Spiriva at home She will follow up with either [facility] or [facility] at discharge From a pulmonary standpoint, no objection to discharge today. Patient does not need abx therapy from a lung standpoint at discharge. Subjective Date of service: 02/09/19 Principal diagnosis: Shortness of breath Interval history: No acute events. Not wheezing today. Son at bedside. VEry long discussion about medications. Objective Vital Signs - 12hr 02/09/19 02/09/19 02/09/19 02:20 02:25 05:21 Temperature 98.4 F Pulse Rate 74 87 Pulse Rate [ 72 Bilateral] Respiratory 21 18 Rate Respiratory 18 Rate [Bilateral ] Blood Pressure 104/60 O2 Sat by Pulse 99 78 L Oximetry 02/09/19 08:19 Temperature Pulse Rate Pulse Rate [ 74 Bilateral] Respiratory Rate Respiratory 18 Rate [Bilateral ] Blood Pressure O2 Sat by Pulse 95 Oximetry Constitutional: other (mild distress) Eyes: non-icteric ENT: oropharynx moist Neck: supple Effort: mildly labored Ascultation: Bilateral: diminished breath sounds, rales Percussion: Bilateral: not dull Tactile fremitus: Bilateral: normal Cardiovascular: regular rate and rhythm Gastrointestinal: normoactive bowel sounds Extremities: edema (trace) Neurologic: normal mental status, non-focal exam CBC and BMP: 02/08/19 06:59 02/08/19 04:27 ABG, PT/INR, D-dimer: ABG POC ABG pH 7.380 (7.35-7.45) 02/07/19 10:03 ABG pH 7.269 pH Units (7.350-7.450) L 02/07/19 05:25 POC ABG pCO2 65.1 (35-45) H 02/07/19 10:03 ABG pCO2 85.4 mm Hg 02/07/19 05:25 POC ABG pO2 66 (80-105) L 02/07/19 10:03 ABG pO2 93.3 mm Hg (80.0-90.0) H 02/07/19 05:25 POC ABG HCO3 38.5 (22-26 mml/L) 02/07/19 10:03 POC ABG Total CO2 40 (23-27mmol/L) 02/07/19 10:03 POC ABG O2 Sat 91 02/07/19 10:03 ABG O2 Saturation 96.6 % (95.0-99.0) 02/07/19 05:25 PT/INR, D-dimer PT 12.1 Sec. (12.2-14.9) L 02/06/19 13:33 INR 0.89 (0.87-1.13) 02/06/19 13:33 Abnormal lab findings: Abnormal Labs 02/06/19 02/06/19 02/06/19 13:33 13:33 13:33 WBC 4.2 L RBC 3.52 L MCV 109 H MCH 35 H Lymph % (Auto) 7.5 L Lymph # 0.3 L Seg Neutrophils % 85.1 H Seg Neuts % (Manual) Lymphocytes % (Manual) Seg Neutrophils # Man Lymphocytes # (Manual) PT 12.1 L POC ABG pH ABG pH POC ABG pCO2 POC ABG pO2 ABG pO2 ABG HCO3 ABG Base Excess ABG Hemoglobin Oxyhemoglobin Chloride 96.9 L Carbon Dioxide 35 H BUN 6 L Creatinine 0.5 L Glucose POC Glucose Phosphorus ALT 6 L CK-MB (CK-2) Rel Index 4.2 H Total Protein Albumin Urine pH 02/06/19 02/06/19 02/07/19 14:04 Unknown 00:56 WBC RBC MCV MCH Lymph % (Auto) Lymph # Seg Neutrophils % Seg Neuts % (Manual) Lymphocytes % (Manual) Seg Neutrophils # Man Lymphocytes # (Manual) PT POC ABG pH 7.464 H 7.276 L ABG pH POC ABG pCO2 56.1 H POC ABG pO2 50 L 62 L ABG pO2 ABG HCO3 ABG Base Excess ABG Hemoglobin Oxyhemoglobin Chloride Carbon Dioxide BUN Creatinine Glucose POC Glucose Phosphorus ALT CK-MB (CK-2) Rel Index Total Protein Albumin Urine pH 8.0 H 02/07/19 02/07/19 02/07/19 01:35 04:55 04:55 WBC 12.4 H RBC 3.28 L MCV 109 H MCH 35 H Lymph % (Auto) Lymph # Seg Neutrophils % Seg Neuts % (Manual) 94.0 H Lymphocytes % (Manual) 2.0 L Seg Neutrophils # Man 11.7 H Lymphocytes # (Manual) 0.2 L PT POC ABG pH ABG pH 7.253 L POC ABG pCO2 POC ABG pO2 ABG pO2 95.4 H ABG HCO3 35.5 H ABG Base Excess 5.6 H ABG Hemoglobin Oxyhemoglobin 94.5 L Chloride Carbon Dioxide 32 H BUN Creatinine Glucose 185 H POC Glucose Phosphorus ALT CK-MB (CK-2) Rel Index Total Protein 5.6 L Albumin 3.2 L Urine pH 02/07/19 02/07/19 02/07/19 04:55 05:25 10:03 WBC RBC MCV MCH Lymph % (Auto) Lymph # Seg Neutrophils % Seg Neuts % (Manual) Lymphocytes % (Manual) Seg Neutrophils # Man Lymphocytes # (Manual) PT POC ABG pH ABG pH 7.269 L POC ABG pCO2 65.1 H POC ABG pO2 66 L ABG pO2 93.3 H ABG HCO3 38.3 H ABG Base Excess 8.5 H ABG Hemoglobin 11.8 L Oxyhemoglobin 94.6 L Chloride Carbon Dioxide BUN Creatinine Glucose POC Glucose Phosphorus 4.60 H ALT CK-MB (CK-2) Rel Index Total Protein Albumin Urine pH 02/08/19 02/08/19 02/08/19 04:27 06:59 22:04 WBC RBC 3.42 L MCV 106 H MCH 35 H Lymph % (Auto) Lymph # Seg Neutrophils % Seg Neuts % (Manual) Lymphocytes % (Manual) Seg Neutrophils # Man Lymphocytes # (Manual) PT POC ABG pH ABG pH POC ABG pCO2 POC ABG pO2 ABG pO2 ABG HCO3 ABG Base Excess ABG Hemoglobin Oxyhemoglobin Chloride 94.2 L Carbon Dioxide 32 H BUN Creatinine 0.6 L Glucose 123 H POC Glucose 125 H Phosphorus ALT CK-MB (CK-2) Rel Index Total Protein Albumin Urine pH
--- NOTE | 2019-02-09 13:32 | Discharge Summary ---
Providers - Providers Date of Admission: 02/06/19 19:33 Date of discharge: 02/09/19 Attending physician: KIKI VEGA 02/06/19 19:33 Consult to Physician [CONS] Routine Comment: Consulting Provider: JEAN CLAUDE YOUNGBLOOD Physician Instructions: Reason For Exam: ICU Admission, acute resp failure Primary care physician: BUSINESS COORDINATOR Hospitalization Condition: Fair Hospital course: 73-year-old female with history of severe COPD comes to the ER for progressive shortness of breath. Shortness of breath requiring less activity to precipitate it. She also reports that her legs were swollen. She denied any chest pain. SOB worsening over last one week. No orthopnea. Cough productive of mucoid sputum. She was seen and evaluated in ED and diagnosed with acute on chronic resp failure due to COPD exacerbatiion. She was started on BIPAP, solumedrol iv and admitted. She improved after few days and was discharged home on 02/09/19. Acute on chronic respiratory failure with hypoxia and hypercapnia Treated with Bipap, IV Solumedrol Pulm consulted, followed during stay. COPD with acute exacerbation Improved on medications and BIPAP Cardiomyopathy. EF 35-40%. Cardiology following Paroxysmal SVT.Managed with Amiodarone. Now on Metoprolol Gastroesophageal reflux disease Full code status. Patient upset she was given Levaquin when she is allergic to Levaquin. I discussed with Nurse and Charge Nurse and consulted risk management Total time spent on discharge, 32 mins Disposition: [id number] HOME UNDER HOME HL[facility] - Discharge Diagnoses (1) Acute respiratory failure with hypoxia and hypercapnia Status: Acute (2) COPD with acute exacerbation Status: Acute (3) GERD (gastroesophageal reflux disease) Status: Acute (4) Paroxysmal SVT (supraventricular tachycardia) Status: Acute (5) Cardiomyopathy Status: Acute Core Measure Documentation - Palliative Care Palliative Care/ Comfort Measures: Not Applicable - Core Measures Any of the following diagnoses?: none Exam - Constitutional Vitals: Temp Pulse Resp BP Pulse Ox 98.4 F 74 18 104/60 95 02/09/19 05:21 02/09/19 08:19 02/09/19 08:19 02/09/19 05:21 02/09/19 08:19 Plan Activity: advance as tolerated Diet: low fat, low cholesterol, low salt Plan of Treatment: 1.Follow up with PCP in 1 week. 2.Follow up with Dr. Nash in 1 week. 3.Follow up with Professor Of Family Medicine in 1 week. 4.Continue home Oxygen 2-3 l/min continuous Follow up with: JOSE ALFREDO NASH MD [Staff Physician] - 7 Days PRIMARY CARE, [Primary Care Provider] - 3-5 Days Prescriptions: predniSONE [Deltasone] 10 mg PO QDAY #30 tab predniSONE [Deltasone] 60 mg PO QDAY 4 Days tab predniSONE [Deltasone] 40 mg PO DAILY 4 Days tablet predniSONE [Deltasone] 20 mg PO DAILY #4 tablet Furosemide [Lasix TAB] 20 mg PO QDAY #30 tablet Metoprolol Xl [Metoprolol SUCCINATE ER TAB] 25 mg PO QDAY #30 tablet lisinopriL [Zestril TAB] 2.5 mg PO QDAY #30 tablet
[2019-02-09] MEDS ORDERED: LISINOPRIL 5 MG TAB PO SCH (13:54)
[2019-02-10] MEDS ORDERED: FUROSEMIDE 20 MG TAB PO SCH (10:00)
[2019-02-10] MEDS ORDERED: METOPROLOL SUCCINATE XL 25 MG TAB PO SCH (10:00)
== END 2019-02-09 16:31 | disposition home health service (06) | DRG 189 ==
LOC: ED 12:59 → 2B-ACE 19:33 → CC1 02-07 00:59 → 4A 02-07 21:27
PROVIDERS: ADMIT Internal Medicine; ATTEND Internal Medicine
PROC: 4A033R1 Measurement of Arterial Saturation, Peripheral, Percutaneous Approach (ICD-10-PCS; principal; 2019-02-06)
PROC: 5A09357 Assistance with Respiratory Ventilation, Less than 24 Consecutive Hours, Continuous Positive Airway Pressure (ICD-10-PCS; 2019-02-07)
PROC: 5A09357 Assistance with Respiratory Ventilation, Less than 24 Consecutive Hours, Continuous Positive Airway Pressure (ICD-10-PCS; 2019-02-08)
PROC: 5A09357 Assistance with Respiratory Ventilation, Less than 24 Consecutive Hours, Continuous Positive Airway Pressure (ICD-10-PCS; 2019-02-09)
DX: J96.21 Acute and chronic respiratory failure with hypoxia (principal); I47.1 Supraventricular tachycardia; J44.1 Chronic obstructive pulmonary disease with (acute) exacerbation; I42.0 Dilated cardiomyopathy; J96.22 Acute and chronic respiratory failure with hypercapnia; I48.91 Unspecified atrial fibrillation; I50.9 Heart failure, unspecified; I27.20 Pulmonary hypertension, unspecified; D64.9 Anemia, unspecified; E83.39 Other disorders of phosphorus metabolism; E83.51 Hypocalcemia; K21.0 Gastro-esophageal reflux disease with esophagitis; Z99.81 Dependence on supplemental oxygen; Z87.891 Personal history of nicotine dependence; Z90.710 Acquired absence of both cervix and uterus; Z90.89 Acquired absence of other organs; Z88.0 Allergy status to penicillin; Z88.2 Allergy status to sulfonamides; Z88.1 Allergy status to other antibiotic agents; Z79.899 Other long term (current) drug therapy; Z79.51 Long term (current) use of inhaled steroids; Z88.8 Allergy status to other drugs, medicaments and biological substances
CPT/HCPCS: 36415; 36600; 71045; 80048; 80053; 81001; 82550; 82553; 82803; 82962; 83036; 83735; 83880; 84100; 84484; 85007; 85025; 85027; 85610; 85730; 93005; 93010; 93306; 94640; 94644; 94660; 94760; 96374; G0378; J0282; J0456; J1170; J1644; J1940; J1956; J2060; J2930; J7040; J7050; J7060